=== PATIENT | male | born 1960 | race Caucasian/White ===

== ENCOUNTER 2020-08-17 07:21 | Outpatient (REF) | payer BC, SELFPAY ==
[2020-08-17 08:35] LABS: Alanine Aminotransferase 18 U/L (0-40); Albumin Level 4.5 g/dL (3.5-5.0); Alkaline Phosphatase 32 U/L (39-117); Anion Gap 14 (12-20); Aspartate Amino Transferase 20 U/L (5-37); Bilirubin Total 0.4 mg/dL (0.0-1.0); Blood Urea Nitrogen 16 mg/dL (9-16); Calcium 8.9 mg/dL (8.4-10.2); Carbon Dioxide 27 mmol/L (22-29); Chloride 103 mmol/L (96-108); Cholesterol 136 mg/dL; Estimated Glomerular Filt Rate > 60; Glucose Fasting 133 mg/dL (60-99); HDL Cholesterol 80 mg/dL; LDL Cholesterol Calculated 35 mg/dl; Potassium 4.6 mmol/l (3.3-5.1); Sodium 139 mmol/L (135-145); Total Protein 7.2 g/dL (6.5-8.0); Triglycerides 108 mg/dL
[2020-08-17 09:00] LABS: Creatinine Urine 96.17 mg/dL; Microalbum/Creatinine Ratio Ur 22.8 ug/mg cr
== END 2020-08-17 07:22 | disposition home or self-care (01) ==
LOC: HO.LAB 07:21
PROVIDERS: Visit Provider Internal Medicine
DX: E78.2 Mixed hyperlipidemia (principal); E55.9 Vitamin D deficiency, unspecified; E11.9 Type 2 diabetes mellitus without complications
CPT/HCPCS: 80053; 80061; 82043; 82306

== ENCOUNTER 2021-06-22 07:14 | Outpatient (REF) | payer OTHER, SELFPAY ==
[2021-06-22 08:35] LABS: Alanine Aminotransferase 15 U/L (0-40); Albumin Level 4.4 g/dL (3.5-5.0); Alkaline Phosphatase 34 U/L (39-117); Anion Gap 12 (12-20); Aspartate Amino Transferase 19 U/L (5-37); Bilirubin Total 0.4 mg/dL (0.0-1.0); Blood Urea Nitrogen 10 mg/dL (9-16); Calcium 9.4 mg/dL (8.4-10.2); Carbon Dioxide 28 mmol/L (22-29); Chloride 106 mmol/L (96-108); Cholesterol 131 mg/dL; Estimated Glomerular Filt Rate > 60; Glucose Fasting 151 mg/dL (60-99); HDL Cholesterol 63 mg/dL; LDL Cholesterol Calculated 31 mg/dl; Potassium 4.6 mmol/L (3.3-5.1); Sodium 141 mmol/L (135-145); Total Protein 6.9 g/dL (6.5-8.0); Triglycerides 189 mg/dL
[2021-06-22 09:19] LABS: Creatinine Urine 126.23 mg/dL; Microalbum/Creatinine Ratio Ur 20.5 ug/mg cr
[2021-06-27 15:01] LABS: Vitamin D 25-OH, D2 <4 ng/mL; Vitamin D 25-OH, D3 36 ng/mL; Vitamin D 25-OH, Total 36 ng/mL (30-100)
== END 2021-06-22 07:15 | disposition home or self-care (01) ==
LOC: HO.LAB 07:14
PROVIDERS: PCP Internal Medicine; Visit Provider Internal Medicine
DX: E55.9 Vitamin D deficiency, unspecified (principal); E78.5 Hyperlipidemia, unspecified; E11.9 Type 2 diabetes mellitus without complications
CPT/HCPCS: 36415; 80053; 80061; 82043; 82306

== ENCOUNTER 2021-11-02 09:56 | Outpatient (REF) | payer OTHER, SELFPAY ==
[2021-11-02 11:25] LABS: Alanine Aminotransferase 10 U/L (0-40); Albumin Level 4.5 g/dL (3.5-5.0); Alkaline Phosphatase 37 U/L (39-117); Anion Gap 11 (12-20); Aspartate Amino Transferase 16 U/L (5-37); Bilirubin Total 0.6 mg/dL (0.0-1.0); Blood Urea Nitrogen 12 mg/dL (9-16); Calcium 9.8 mg/dL (8.4-10.2); Carbon Dioxide 30 mmol/L (22-29); Chloride 101 mmol/L (96-108); Cholesterol 139 mg/dL; Estimated Glomerular Filt Rate > 60; Glucose Fasting 146 mg/dL (60-99); HDL Cholesterol 62 mg/dL; LDL Cholesterol Calculated 62 mg/dl; Potassium 4.4 mmol/L (3.3-5.1); Sodium 138 mmol/L (135-145); Total Protein 7.1 g/dL (6.5-8.0); Triglycerides 75 mg/dL
[2021-11-02 11:35] LABS: Creatinine Urine 73.83 mg/dL; Microalbum/Creatinine Ratio Ur 9.4 ug/mg cr
[2021-11-07 13:17] LABS: Vitamin D 25-OH, D2 <4 ng/mL; Vitamin D 25-OH, D3 29 ng/mL; Vitamin D 25-OH, Total 29 ng/mL (30-100)
== END 2021-11-02 09:57 | disposition home or self-care (01) ==
LOC: HO.LAB 09:56
PROVIDERS: PCP Internal Medicine; Visit Provider Internal Medicine
DX: E11.9 Type 2 diabetes mellitus without complications (principal); E55.9 Vitamin D deficiency, unspecified; E78.5 Hyperlipidemia, unspecified
CPT/HCPCS: 36415; 80053; 80061; 82043; 82306

== ENCOUNTER 2022-03-15 07:09 | Outpatient (REF) | payer OTHER, SELFPAY ==
[2022-03-15 07:50] LABS: Alanine Aminotransferase 18 U/L (0-40); Albumin Level 4.5 g/dL (3.5-5.0); Alkaline Phosphatase 43 U/L (39-117); Anion Gap 12 (12-20); Aspartate Amino Transferase 24 U/L (5-37); Bilirubin Total 0.8 mg/dL (0.0-1.0); Blood Urea Nitrogen 13 mg/dL (9-16); Calcium 9.6 mg/dL (8.4-10.2); Carbon Dioxide 28 mmol/L (22-29); Chloride 106 mmol/L (96-108); Cholesterol 130 mg/dL; Estimated Glomerular Filt Rate > 60; Glucose Fasting 125 mg/dL (60-99); HDL Cholesterol 73 mg/dL; LDL Cholesterol Calculated 32 mg/dl; Potassium 4.4 mmol/L (3.3-5.1); Sodium 142 mmol/L (135-145); Total Protein 7.3 g/dL (6.5-8.0); Triglycerides 129 mg/dL
[2022-03-15 09:15] LABS: Creatinine Urine 66.64 mg/dL; Microalbumin Urine < 5.0 mg/L
[2022-03-20 12:26] LABS: Vitamin D 25-OH, D2 <4 ng/mL; Vitamin D 25-OH, D3 36 ng/mL; Vitamin D 25-OH, Total 36 ng/mL (30-100)
== END 2022-03-15 07:10 | disposition home or self-care (01) ==
LOC: HO.LAB 07:09
PROVIDERS: PCP Internal Medicine; Visit Provider Internal Medicine
DX: E55.9 Vitamin D deficiency, unspecified (principal); E11.9 Type 2 diabetes mellitus without complications; E78.5 Hyperlipidemia, unspecified
CPT/HCPCS: 36415; 80053; 80061; 82043; 82306

== ENCOUNTER 2022-07-19 09:32 | Outpatient (REF) | payer OTHER, SELFPAY ==
[2022-07-19 11:19] LABS: Alanine Aminotransferase 13 U/L (0-40); Albumin Level 4.7 g/dL (3.5-5.0); Alkaline Phosphatase 42 U/L (39-117); Anion Gap 19 (12-20); Aspartate Amino Transferase 17 U/L (5-37); Bilirubin Total 0.4 mg/dL (0.0-1.0); Blood Urea Nitrogen 17 mg/dL (9-16); Calcium 10.3 mg/dL (8.4-10.2); Carbon Dioxide 25 mmol/L (22-29); Chloride 99 mmol/L (96-108); Cholesterol 139 mg/dL; Estimated Glomerular Filt Rate > 60; Glucose Fasting 115 mg/dL (60-99); HDL Cholesterol 65 mg/dL; LDL Cholesterol Calculated 59 mg/dl; Potassium 4.6 mmol/L (3.3-5.1); Sodium 138 mmol/L (135-145); Total Protein 7.4 g/dL (6.5-8.0); Triglycerides 75 mg/dL
[2022-07-19 11:24] LABS: Vitamin D 25-OH Total 36.3 ng/mL (>30)
[2022-07-19 11:27] LABS: Creatinine Urine 85.32 mg/dL; Microalbum/Creatinine Ratio Ur 11.7 ug/mg cr
== END 2022-07-19 09:33 | disposition home or self-care (01) ==
LOC: HO.LAB 09:32
PROVIDERS: PCP Internal Medicine; Visit Provider Internal Medicine
DX: E55.9 Vitamin D deficiency, unspecified (principal); E78.2 Mixed hyperlipidemia; E11.9 Type 2 diabetes mellitus without complications
CPT/HCPCS: 36415; 80053; 80061; 82043; 82306

== ENCOUNTER 2023-01-03 09:24 | Outpatient (REF) | payer OTHER, SELFPAY ==
[2023-01-03 10:36] LABS: Alanine Aminotransferase 11 U/L (0-40); Albumin Level 4.3 g/dL (3.5-5.0); Alkaline Phosphatase 37 U/L (39-117); Anion Gap 14 (12-20); Aspartate Amino Transferase 14 U/L (5-37); Bilirubin Total 0.6 mg/dL (0.0-1.0); Blood Urea Nitrogen 13 mg/dL (9-16); Calcium 9.2 mg/dL (8.4-10.2); Carbon Dioxide 27 mmol/L (22-29); Chloride 104 mmol/L (96-108); Cholesterol 138 mg/dL; Estimated Glomerular Filt Rate > 60; Glucose Fasting 126 mg/dL (60-99); HDL Cholesterol 68 mg/dL; LDL Cholesterol Calculated 58 mg/dl; Potassium 4.3 mmol/L (3.3-5.1); Sodium 141 mmol/L (135-145); Total Protein 6.6 g/dL (6.5-8.0); Triglycerides 62 mg/dL
[2023-01-03 10:51] LABS: Vitamin D 25-OH Total 36.2 ng/mL (>30)
[2023-01-03 11:45] LABS: Creatinine Urine 110.67 mg/dL; Microalbum/Creatinine Ratio Ur 10.8 ug/mg cr
== END 2023-01-03 09:25 | disposition home or self-care (01) ==
LOC: HO.LAB 09:24
PROVIDERS: PCP Internal Medicine; Visit Provider Internal Medicine
DX: E11.9 Type 2 diabetes mellitus without complications (principal); E55.9 Vitamin D deficiency, unspecified; E78.5 Hyperlipidemia, unspecified
CPT/HCPCS: 36415; 80053; 80061; 82043; 82306

== ENCOUNTER 2023-05-09 09:42 | Outpatient (REF) | payer OTHER, SELFPAY ==
[2023-05-09 11:18] LABS: Alanine Aminotransferase 12 U/L (0-40); Albumin Level 4.6 g/dL (3.5-5.0); Alkaline Phosphatase 40 U/L (39-117); Anion Gap 14 (12-20); Aspartate Amino Transferase 16 U/L (5-37); Bilirubin Total 0.5 mg/dL (0.0-1.0); Blood Urea Nitrogen 16 mg/dL (9-16); Calcium 10.4 mg/dL (8.4-10.2); Carbon Dioxide 27 mmol/L (22-29); Chloride 102 mmol/L (96-108); Cholesterol 129 mg/dL; Estimated Glomerular Filt Rate > 60; Glucose Fasting 110 mg/dL (60-99); HDL Cholesterol 68 mg/dL; LDL Cholesterol Calculated 44 mg/dl; Magnesium 1.6 mg/dL (1.6-2.6); Potassium 4.1 mmol/L (3.3-5.1); Sodium 139 mmol/L (135-145); Total Protein 7.5 g/dL (6.5-8.0); Triglycerides 87 mg/dL
[2023-05-09 11:33] LABS: Vitamin D 25-OH Total 41.6 ng/mL (>30)
[2023-05-09 11:45] LABS: Creatinine Urine 81.06 mg/dL; Microalbum/Creatinine Ratio Ur 14.8 ug/mg cr
== END 2023-05-09 09:43 | disposition home or self-care (01) ==
LOC: HO.LAB 09:42
PROVIDERS: PCP Internal Medicine; Visit Provider Internal Medicine
DX: E55.9 Vitamin D deficiency, unspecified (principal); E11.9 Type 2 diabetes mellitus without complications; R25.2 Cramp and spasm; E78.5 Hyperlipidemia, unspecified
CPT/HCPCS: 36415; 80053; 80061; 82043; 82306; 83735

== ENCOUNTER 2023-05-12 15:23 | Outpatient (AMB) | payer OTHER, SELFPAY ==
--- NOTE | 2023-05-12 15:25 | A.OFFPC_ITS ---
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 Required: No Accompanied by: Self / Same As Patient Allergies No Known Allergies Allergy (Verified 05/12/23 15:39) Medication List - Last Reconciled 05/12/23 by Niesha Isabel MD atorvastatin 10 mg PO DAILY blood sugar diagnostic Use 1 test strip once a day blood sugar diagnostic (OneTouch Ultra Test strips) Use 1 test strip once a day blood sugar diagnostic (FreeStyle Test strips) Use 1 test strip once a day blood-glucose meter (FreeStyle Lite Meter kit) As directed cholecalciferol (vitamin D3) 50 mcg PO DAILY fenofibrate 54 mg PO DAILY lancets (OneTouch Delica Lancets) Use 1 lancet once a day lancets (FreeStyle Lancets) Use 1 lancet once a day metformin 850 mg PO BID Tobacco use date assessed: 01/08/23 Dental Screening Dental Screen Date: 05/12/23 Did you have a dental visit in the last 12 months?: Yes Did you have a dental problem in the last 6 months where you did not have access to dental care?: No Was dental information given to patient?: Patient has dentist HPI HPI Comments History of Present Illness Details This is a 63-year-old male with diabetes mellitus type 2, mixed hyperlipidemia and low vitamin-D that comes today for follow-up on his conditions. Denies any chest pain shortness of breath. A1c within goal. Cholesterol stable and LDL within goal. Blood pressure elevated today and will be recheck in 3 weeks by nurse navigator. Advised low-salt diet. [facility] Medical History (Updated 05/12/23 @ 16:27 by Niesha Isabel MD) Diabetes mellitus Hypovitaminosis D Mixed hyperlipidemia Right inguinal hernia Surgical History History of inguinal hernia repair History of tonsillectomy History of umbilical hernia repair Family History Father Lung cancer Mother Esophageal cancer Brother Throat cancer Social History Housing: Apartment Alcohol intake: current Alcohol intake frequency: a few times a week Alcohol type: beer Patient Tobacco Use Status: Former Tobacco user Tobacco use type: Cigarette Years Smoked: 10 years e-Cigarette/Vaping Use: Never Used Second Hand Smoke Exposure: No service: No Current occupational status: employed Current occupational exposures/hazards: No Cognitive needs: No Hearing needs: No Vision needs: No Questionnaire Thrive Questionnaire Date Thrive assessed: 01/08/23 MICHAEL-7 AMB Questionnaire MICHAEL-7 Date MICHAEL - 7 assessed: 01/08/23 Source: Developed by Drs. Vivek Esteban, Kaykay Iglesias, Charles Rodriguez and colleagues, with an educational fei from [employer]. Review of Systems Const All systems reviewed & are unremarkable except as noted in HPI and below Eyes Reports no additional complaints, Denies change in vision and Denies other visual disturbances Card Denies chest pain at rest, Denies chest pain with activity, Denies edema, Denies irregular heart rhythm, Denies claudication, Denies dyspnea, Denies dyspnea on exertion, Denies orthopnea, Denies paroxysmal nocturnal dyspnea and Denies slow heart rate Resp Denies cough, Denies dyspnea and Denies dyspnea on exertion GI Denies abdominal pain, Denies change in bowel habits, Denies excessive flatus, Denies nausea and Denies vomiting Denies urinary hesitancy, Denies urinary incontinence and Denies urinary urgency Musc Denies abnormal gait, Denies atrophy, Denies deformity and Denies limited range of motion Skin/Breast Denies bleeding lesions, Denies changing lesions and Denies rash Neuro Denies abnormal gait Physical exam (Primary Care) Vital Signs: Last Vital Signs BP 160/90 H 05/12/23 15:29 BMI result Body Mass Index 26.0 Tobacco/Smoking Status: Tobacco use Status Tobacco use date assessed 01/08/23 05/12/23 15:28 Patient Tobacco Use Status Former Tobacco user 05/12/23 15:28 Tobacco use type Cigarette 05/12/23 15:28 e-Cigarette/Vaping Use Never Used 05/12/23 15:28 Thrive Assessment: Date of Thrive Assessment Date Thrive assessed 01/08/23 05/12/23 15:28 Eyes General: appearance normal, both eyes and all related structures Eyelids: Yes eyelids normal Conjunctivae: conjunctivae normal Neck Neck: Yes normal visual inspection and Yes supple Resp Effort & Inspection: normal respiratory effort Auscultation: clear to auscultation bilaterally Cardio Jugular venous distension: no JVD Rate: regular rate Rhythm: regular rhythm Heart sounds: S1 normal heart sound present and S2 normal heart sound present Extrem General: Yes full ROM Results AMB Hemoglobin A1c AMB Hemoglobin A1c 5.9 % Last Edit by MALCOLM Almaraz on 05/12/23 15:4 0 Results Reviewed Results Reviewed: Laboratory Last Values Hgb A1c (Clinic) 5.9 % (4.0-6.0) 05/12/23 15:25 Assessment and Plan Assessment & Plan (1) Diabetes mellitus: Code(s): E11.9 - Type 2 diabetes mellitus without complications Qualifiers: Diabetes mellitus type: type 2 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 A1c goal is equal or less than 7%. (2) Mixed hyperlipidemia: Code(s): E78.2 - Mixed hyperlipidemia Plan: Continue statins and fibrates. LDL goal is less than 70. (3) Hypovitaminosis D: Code(s): E55.9 - Vitamin D deficiency, unspecified Plan: Continue vitamin-D supplements. (4) Elevated blood pressure reading without diagnosis of hypertension: Code(s): R03.0 - Elevated blood-pressure reading, without diagnosis of hypertension Plan: Recheck blood pressure with nurse navigator in 3 weeks. Blood pressure goal is equal or less than 130/80. Avoid salt. Orders: Orders AMB Hemoglobin A1c Today E11.9 - Type 2 diabetes mellitus without complications Coding Level of Care Code Est Pt Level 4 (96243) Diagnoses Diabetes mellitus E11.9 Diabetes mellitus type: type 2 Diabetes mellitus termite control service representative insulin use: without termite control service representative use Diabetes mellitus complication status: without complication Mixed hyperlipidemia E78.2 Hypovitaminosis D E55.9 Elevated blood pressure reading without diagnosis of hypertension R03.0 Time Spent (min) 23
[2023-05-12 15:29] VITALS: BP 160/90; BMI 26.0
[2023-05-12 16:26] VITALS: BP 160/90
== END 2023-05-12 15:46 | disposition home or self-care (01) ==
PROVIDERS: PCP Internal Medicine; Visit Provider Internal Medicine
DX: E11.9 Type 2 diabetes mellitus without complications (principal); E78.2 Mixed hyperlipidemia; E55.9 Vitamin D deficiency, unspecified; R03.0 Elevated blood-pressure reading, without diagnosis of hypertension
CPT/HCPCS: 83036; 99214

== ENCOUNTER 2023-09-03 15:30 | Outpatient (AMB) | payer OTHER, SELFPAY ==
[2023-09-03 15:31] VITALS: BP 136/80; PULSE 86; O2SAT 99; BMI 26.1
--- NOTE | 2023-09-03 15:31 | A.OFFPC_ITS ---
Vital Signs 09/03/23 15:31 Height 5 ft 6 in Weight 162 lb BMI 26.1 BP 136/80 Blood Pressure Location Lt brachial Position Sitting Pulse 86 Pulse Source Pulse Oximeter Pulse Oximetry (%) 99 Oxygen Delivery Method Room Air Intake Visit Reasons: itching rash on both legs Intake Note: pt states rash/pain/itchiness on both legs [id number] with no relief. 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 Tumbler Machine Operator Language: Serbian Allergies No Known Allergies Allergy (Verified 09/03/23 16:12) Medication List - Last Reconciled 09/03/23 by DIONNE Cota atorvastatin 10 mg PO DAILY blood sugar diagnostic Use 1 test strip once a day blood sugar diagnostic (OneTouch Ultra Test strips) Use 1 test strip once a day blood sugar diagnostic (FreeStyle Test strips) Use 1 test strip once a day blood-glucose meter (FreeStyle Lite Meter kit) As directed cholecalciferol (vitamin D3) 50 mcg PO DAILY fenofibrate 54 mg PO DAILY lancets (OneTouch Delica Lancets) Use 1 lancet once a day lancets (FreeStyle Lancets) Use 1 lancet once a day metformin 850 mg PO BID Tobacco use date assessed: 09/03/23 Dental Screening Dental Screen Date: 09/03/23 Did you have a dental visit in the last 12 months?: Yes Did you have a dental problem in the last 6 months where you did not have access to dental care?: No Was dental information given to patient?: Patient has dentist HPI itching rash on both legs HPI Details Patient is a 63-year-old male who presents today with rash on her both legs for the past couple years. Patient of Dr. Gann. Medical history significant for diabetes, hyperlipidemia among others. Patient reports itchy, painful dry rash on his both legs for the past 1 month now with no improvement. Reports was seen in urgent care couple months ago and was prescribed cream with no much improvement. Reports taking Benadryl tablets with no improvement. Denies changes in shampoo, body wash, detergent, new medications. No other symptoms. Has an upcoming insurance follow up rep appointment next month. Patient is a Serbian-speaking and Aruna was helping with interpretation. [facility] Medical History Right inguinal hernia Hypovitaminosis D Mixed hyperlipidemia Diabetes mellitus Surgical History History of inguinal hernia repair History of umbilical hernia repair History of tonsillectomy Family History Father Lung cancer Mother Esophageal cancer Brother Throat cancer Social History Housing: Apartment Alcohol intake: current Alcohol intake frequency: a few times a week Alcohol type: beer Patient Tobacco Use Status: Former Tobacco user Tobacco use type: Cigarette Years Smoked: 10 years e-Cigarette/Vaping Use: Never Used Second Hand Smoke Exposure: No service: No Current occupational status: employed Current occupational exposures/hazards: No Cognitive needs: No Hearing needs: No Vision needs: No Questionnaire Thrive Questionnaire Date Thrive assessed: 01/08/23 AUDIT C Alcohol Use Questionnaire (AUDIT-C) 1. How often do you have a drink containing alcohol?: 4 or more times a week 2. How many drinks containing alcohol do you have on a typical day when you are drinking?: 1 or 2 3. How often do you have six or more drinks on one occasion?: Never Total Score: 4 Score Reviewed/Action Taken: Yes MICHAEL-7 AMB Questionnaire MICHAEL-7 Date MICHAEL - 7 assessed: 01/08/23 Source: Developed by Drs. Vivek Esteban, Kaykay Iglesias, Charles Rodriguez and colleagues, with an educational fei from [employer]. Review of Systems Const Denies body aches, Denies chills, Denies fever(s) and Denies headache(s) ENT Denies dizziness, Denies otalgia, Denies headache(s), Denies nasal discharge, Denies sinus pain and Denies sore throat Card Denies chest pain, Denies edema, Denies lightheadedness and Denies dyspnea Resp Denies cough, Denies dyspnea and Denies wheezing GI Denies abdominal pain Musc Denies myalgias Skin/Breast Reports rash Neuro Denies dizziness and Denies headache(s) Aller/Immun Denies wheezing Physical exam (Primary Care) Vital Signs: Last Vital Signs Pulse 86 09/03/23 15:31 BP 136/80 09/03/23 15:31 Pulse Ox 99 09/03/23 15:31 Oxygen Delivery Method Room Air 09/03/23 15:31 BMI result Body Mass Index 26.1 Tobacco/Smoking Status: Tobacco use Status Tobacco use date assessed 09/03/23 09/03/23 15:32 Patient Tobacco Use Status Former Tobacco user 09/03/23 15:32 Tobacco use type Cigarette 09/03/23 15:32 e-Cigarette/Vaping Use Never Used 09/03/23 15:32 Thrive Assessment: Date of Thrive Assessment Date Thrive assessed 01/08/23 09/03/23 15:32 Const General: cooperative and no acute distress Orientation/consciousness: patient oriented x3 HENMT Head: Yes normocephalic and Yes atraumatic Throat: Yes posterior oropharynx normal Eyes General: appearance normal, both eyes and all related structures Neck Neck: Yes normal visual inspection and Yes full ROM Resp Effort & Inspection: normal respiratory effort and able to speak in complete sentences Auscultation: clear to auscultation bilaterally, no crackles, no rales, no rhonchi and no wheezes Cardio Rate: regular rate Rhythm: regular rhythm Heart sounds: S1 normal heart sound present and S2 normal heart sound present GI Auscultation: normal bowel sounds Skin Other: Bilateral lower extremity distal posterior aspect with moderate amount of slightly erythematous dry areas noted, patient reports pruritus, no signs of infection noted Neuro General: patient oriented x3 Gait exam (Neuro): Normal gait present Extrem General: Yes full ROM and No edema Assessment and Plan Assessment & Plan (1) Pruritic rash: Code(s): L28.2 - Other prurigo Plan: Bilateral lower extremity distal posterior aspect with moderate amount of slightly erythematous dry areas noted, patient reports pruritus, no signs of infection noted ? Eczema Will treat with triamcinolone cream daily for 2 weeks - do not use this cream on face Also encouraged to use Vaseline daily to bilateral lower extremity Dermatology referral for an evaluation due to rash for the past couple years per patient Patient agreed with the plan Orders: Referrals Dermatology Referral L28.2 - Other prurigo Medications: New triamcinolone acetonide 0.1% 1 appl topical DAILY 14 days 80 grams 0RF L28.2 - Other prurigo Coding Level of Care Code Est Pt Level 3 (51264) Diagnoses Pruritic rash L28.2
== END 2023-09-03 16:29 | disposition home or self-care (01) ==
LOC: HO.HMGH 15:30
PROVIDERS: PCP Internal Medicine; Visit Provider Nurse Practitioner Family
DX: L28.2 Other prurigo (principal)
CPT/HCPCS: 99213

== ENCOUNTER 2024-01-13 15:44 | Outpatient (AMB) | payer OTHER, SELFPAY ==
--- NOTE | 2024-01-13 15:48 | A.OFFPC_ITS ---
Vital Signs 01/13/24 15:49 Height 5 ft 6 in Weight 165 lb BMI 26.6 BP 130/62 Blood Pressure Location Lt brachial Position Sitting Intake Visit Reasons: Annual exam Intake Note: Patient here for a an annual physical exam Pathologist Required: No Accompanied by: Self / Same As Patient Allergies No Known Allergies Allergy (Verified 01/13/24 16:14) Medication List - Last Reconciled 01/13/24 by Niesha Isabel MD atorvastatin 10 mg PO DAILY blood sugar diagnostic Use 1 test strip once a day blood sugar diagnostic (OneTouch Ultra Test strips) Use 1 test strip once a day blood sugar diagnostic (FreeStyle Test strips) Use 1 test strip once a day blood-glucose meter (FreeStyle Lite Meter kit) As directed cholecalciferol (vitamin D3) 50 mcg PO DAILY fenofibrate 54 mg PO DAILY lancets (FreeStyle Lancets) Use 1 lancet once a day lancets (OneTouch Delica Lancets) Use 1 lancet once a day metformin 850 mg PO BID triamcinolone acetonide 0.1% 1 appl topical DAILY 14 days Tobacco use date assessed: 01/13/24 Dental Screening Dental Screen Date: 01/13/24 Did you have a dental visit in the last 12 months?: No Did you have a dental problem in the last 6 months where you did not have access to dental care?: No Was dental information given to patient?: Patient has dentist HPI HPI Comments History of Present Illness Details This is a 63-year-old male with diabetes mellitus type 2 that comes for his physical exam. A1c elevated and I will increase metformin. Last colonoscopy was over 10 years ago and will be refer through open access. Was referred last year but was not able to make it happen. Diabetic eye exam was less than a year ago and was normal. No chest pain or shortness of breath. No acute complaints. [facility] Medical History (Updated 01/13/24 @ 16:26 by Niesha Isabel MD) Right inguinal hernia Hypovitaminosis D Mixed hyperlipidemia Diabetes mellitus Surgical History History of inguinal hernia repair History of umbilical hernia repair History of tonsillectomy Family History Father Lung cancer Mother Esophageal cancer Brother Throat cancer Social History Housing: Apartment Alcohol intake: current Alcohol intake frequency: a few times a week Alcohol type: beer Patient Tobacco Use Status: Former Tobacco user Tobacco use type: Cigarette Years Smoked: 10 years e-Cigarette/Vaping Use: Never Used Second Hand Smoke Exposure: No service: No Current occupational status: employed Current occupational exposures/hazards: No Cognitive needs: No Hearing needs: No Vision needs: No Questionnaire PHQ-9 Over the last 2 weeks, how often have you been bothered by any of the following problems? 1. Little interest or pleasure in doing things: not at all 2. Feeling down, depressed, or hopeless: not at all 3. Trouble falling or staying asleep, or sleeping too much: not at all 4. Feeling tired or having little energy: not at all 5. Poor appetite or overeating: not at all 6. Feeling bad about yourself - or that you are a failure or have let yourself or your family down: not at all 7. Trouble concentrating on things, such as reading the newspaper or watching television: not at all 8. Moving or speaking so slowly that other people could have noticed. Or the opposite - being so fidgety or restless that you have been moving around a lot more than usual: not at all 9. Thoughts that you would be better off or of hurting yourself in some way: not at all Total score: 0 Depression Screening Interpretation: Negative Depression Screening Done: Yes 42564 - PHQ-9 Billing: Yes Source: Developed by Drs. Vivek Esteban, Kaykay Iglesias, Charles Rodriguez and colleagues, with an educational fei from [employer]. Thrive Questionnaire Date Thrive assessed: 01/13/24 I am a: Patient What is your living situation today?: I have a steady place to live Within the past 12 months, did the food you bought not last and you didn't have the money to get more?: Never true Within the past 12 months, did you worry whether your food would run out before you got money to buy more?: Never true Do you have trouble paying for medicines?: No Do you have trouble getting transportation to medical appointments?: No Do you have trouble paying your heating and electricity bill?: No Do you have trouble taking care of your child, family member or friend?: No Do you have trouble with day-to-day activities such as bathing, preparing meals, shopping, managing finances, etc.?: No Are you currently unemployed and looking for a job?: No Are you interested in more education?: No Please select the resources that you would like help with: None Currently or been in a relationship where the following occur: no concerns reported THRIVE Score: 0 AUDIT C Alcohol Use Questionnaire (AUDIT-C) 1. How often do you have a drink containing alcohol?: 2-4 times a month 2. How many drinks containing alcohol do you have on a typical day when you are drinking?: 1 or 2 3. How often do you have six or more drinks on one occasion?: Never Total Score: 2 MICHAEL-7 AMB Questionnaire MICHAEL-7 Date MICHAEL - 7 assessed: 01/13/24 Feeling nervous, anxious, or on edge: 0 = Not at all Not being able to stop or control worryin = Not at all Worrying too much about different things: 0 = Not at all Trouble relaxin = Not at all Being so restless that it is hard to sit still: 0 = Not at all Becoming easily annoyed or irritable: 0 = Not at all Feeling afraid as if something awful might happen: 0 = Not at all Total MICHAEL-7 score (0-4 normal; 5-9 mild; 10-14 moderate; 15-21 severe): 0 Source: Developed by Drs. Vivek Esteban, Kaykay Iglesias, Charles Rodriguez and colleagues, with an educational fei from [employer]. MICHAEL-7 Assessment Billing MICHAEL-7 Assessment Tool: MICHAEL-7 Assessment 65743 Review of Systems Const All systems reviewed & are unremarkable except as noted in HPI and below Card Denies chest pain at rest, Denies chest pain with activity, Denies edema, Denies irregular heart rhythm, Denies claudication, Denies dyspnea, Denies dyspnea on exertion, Denies orthopnea, Denies paroxysmal nocturnal dyspnea and Denies slow heart rate Resp Denies cough, Denies dyspnea and Denies dyspnea on exertion GI Denies abdominal pain, Denies change in bowel habits, Denies excessive flatus, Denies nausea and Denies vomiting Physical exam (Primary Care) Vital Signs: Last Vital Signs BP 130/62 01/13/24 15:49 BMI result Body Mass Index 26.6 Tobacco/Smoking Status: Tobacco use Status Tobacco use date assessed 01/13/24 01/13/24 15:53 Patient Tobacco Use Status Former Tobacco user 01/13/24 15:53 Tobacco use type Cigarette 01/13/24 15:53 e-Cigarette/Vaping Use Never Used 01/13/24 15:53 PHQ-9: PHQ-9 Score PHQ-9: Total score 0 01/13/24 16:21 Depression Screening Interpretation: Negative Thrive Assessment: Date of Thrive Assessment Date Thrive assessed 01/13/24 01/13/24 15:59 Currently or been in a relationship where the following occur: no concerns reported Const Orientation/consciousness: patient oriented x3 HENMT Head: Yes normal to inspection, Yes normocephalic and Yes atraumatic Ears: external ears normal Eyes General: appearance normal, both eyes and all related structures Eyelids: Yes eyelids normal Conjunctivae: conjunctivae normal Neck Neck: Yes normal visual inspection and Yes supple Resp Effort & Inspection: normal respiratory effort Auscultation: clear to auscultation bilaterally Cardio Jugular venous distension: no JVD Rate: regular rate Rhythm: regular rhythm Heart sounds: S1 normal heart sound present and S2 normal heart sound present GI Inspection: Yes normal to inspection Palpation (GI): Soft to palpation and nontender Auscultation: normal bowel sounds Skin General skin exam: no rashes or lesions noted Neuro General: patient oriented x3 and no focal motor deficits Extrem General: Yes full ROM Psych Appearance: grossly normal Results AMB Hemoglobin A1c AMB Hemoglobin A1c 7.3 % Last Edit by MALCOLM Almaraz on 01/13/24 16:0 3 Results Reviewed Results Reviewed: Laboratory Last Values Hgb A1c (Clinic) 7.3 % (4.0-6.0) H 01/13/24 16:00 Assessment and Plan Assessment & Plan (1) Physical exam: Code(s): Z00.00 - Encounter for general adult medical examination without abnormal findings Plan: Repeat in a year. 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 A1c goal is equal or less than 7%. Orders: Orders AMB Hemoglobin A1c Today E11.9 - Type 2 diabetes mellitus without complications Comprehensive [place]. Panel Fast 4 Months E11.9 - Type 2 diabetes mellitus without complications Lipid Panel 4 Months E11.9 - Type 2 diabetes mellitus without complications, E78.5 - Hyperlipidemia, unspecified Vitamin D 25-OH Total 4 Months E55.9 - Vitamin D deficiency, unspecified US abdomen complete Today R10.11 - Right upper quadrant pain [place] upper GI series Today K21.9 - Gastro-esophageal reflux disease without esophagitis Microalbumin, Random (w Creat) 4 Months E11.9 - Type 2 diabetes mellitus without complications Referrals Open Access Screening Colonoscopy Referral Z12.11 - Encounter for screening for malignant neoplasm of colon Medications: New omeprazole 20 mg PO DAILY 90 days PRN 90 caps 1RF heartburn K21.9 - Gastro- esophageal reflux disease without esophagitis metformin 1,000 mg PO BID 90 days 180 tabs 1RF E11.9 - Type 2 diabetes mellitus without complications Refilled blood-glucose meter (FreeStyle Lite Meter kit) As directed 1 ea 0RF E11.9 - Type 2 diabetes mellitus without complications Discontinued metformin Discontinued Reason: Patient Completed Course 850 mg PO BID 60 tabs 2RF Coding Level of Care Code Est Pt Prev Care 40-64y(82086) Diagnoses Physical exam Z00.00 Type 2 diabetes mellitus without complication, without long-term current use of insulin E11.9 Diabetes mellitus type: type 2 Diabetes mellitus [facility] insulin use: without [employer] use Diabetes mellitus complication status: without complication Additional Codes MICHAEL-7 Assessment Billing - MICHAEL-7 Assessment Tool: MICHAEL-7 Assessment 16768 ([id number]) Time Spent (min) 33
[2024-01-13 15:49] VITALS: BP 130/62; BMI 26.6
== END 2024-01-13 16:27 | disposition home or self-care (01) ==
PROVIDERS: PCP Internal Medicine; Visit Provider Internal Medicine
DX: E11.9 Type 2 diabetes mellitus without complications (principal)
CPT/HCPCS: 83036; 99396

== ENCOUNTER 2024-01-21 08:03 | Outpatient (REF) | payer OTHER, SELFPAY ==
--- NOTE | ~2024-01-21 | FL_ITS ---
EXAMINATION: XR FLUOROSCOPY UPPER GI WITH AIR CLINICAL INFORMATION: Reflux. Abdominal pain COMPARISON: None TECHNIQUE: Fluoroscopic air contrast upper GI examination was performed utilizing standard techniques with thin and thick barium and effervescent granules. Numerous spot images were obtained. FINDINGS: Dual and single contrast images of the esophagus demonstrate normal caliber, contour, and mucosal pattern. No evidence of stricture, mass, or ulcerations identified. Esophageal peristalsis is mildly disorganized. No evidence of hiatus hernia identified. Gastroesophageal reflux is seen up to the thoracic inlet. Dual contrast and single contrast images of the stomach demonstrated a normal contour. There are a few tiny foci of contrast pooling in the fundus of the stomach that may represent small mucosal ulcers. No masses are present. Contrast freely passed into the gastric antrum and duodenal bulb without delay. Single and air-contrast images of the duodenal bulb demonstrate no abnormality. The duodenal sweep has a normal appearance, course, and mucosal fold appearance. The imaged proximal jejunum has a normal fold pattern and caliber. There is rapid transit of the barium column. Contrast is observed up to the transverse colon in less than 10 minutes. FLUOROSCOPY TIME: 3 minutes 7 second Number of Spot Images: 11 Number of Cine: 10 DOSE AREA PRODUCT: 2142 uGy-m2 (microgray-meter squared) FL/FL upper GI w air IMPRESSION: 1. Mildly disorganized esophageal peristalsis 2. There are few tiny foci of contrast pooling in the fundus the stomach that may represent small superficial aphthous ulcers. Recommend correlation with EGD. 3. Rapid transit of the barium column. Contrast is observed in the transverse colon in less than 10 minutes. . This procedure was performed by Zelalem Tay PA-C, and supervised by Dr. Wasserman
== END 2024-01-21 08:04 | disposition home or self-care (01) ==
LOC: HO.XRAY 08:03
PROVIDERS: PCP Internal Medicine; Visit Provider Internal Medicine
DX: K21.9 Gastro-esophageal reflux disease without esophagitis (principal)
CPT/HCPCS: 74246

== ENCOUNTER → 2024-01-21 08:06 | Outpatient (BNV) | payer OTHER, SELFPAY | PROVIDERS: PCP Internal Medicine; Visit Provider Physician Assistant Surgical | DX: K21.9 Gastro-esophageal reflux disease without esophagitis (principal); R10.9 Unspecified abdominal pain | CPT/HCPCS: 74246 ==

== ENCOUNTER 2024-02-18 08:29 | Outpatient (REF) | payer OTHER, SELFPAY ==
--- NOTE | ~2024-02-18 | US_ITS ---
EXAMINATION: US ABDOMEN COMPLETE CLINICAL INFORMATION: Right upper quadrant pain. COMPARISON: X-ray abdomen 09/17/2016. TECHNIQUE: Real-time imaging of the abdominal viscera. Increased renal echogenicity can be seen with medical renal disease. Limited visualization due to bowel gas. FINDINGS: PANCREAS: Limited visualization of pancreatic tail and head. Imaged portion of pancreatic body is unremarkable. ABDOMINAL AORTA: Limited visualization. INFERIOR VENA CAVA: Visualized portions are normal. LIVER: Increased hepatic parenchymal heterogeneity and echogenicity could be associated with hepatocellular disease/hepatic steatosis and substantially limits visualization. Correlation with liver function tests and clinical exam recommended to determine further management. The liver contour is normal. 0.4 cm echogenic focus in the left hepatic lobe is characteristic of a coarse calcification. GALLBLADDER: No gallstones. No gallbladder wall thickening. COMMON BILE DUCT: Normal in caliber measuring 0.4 cm in diameter. RIGHT KIDNEY: No hydronephrosis. No renal calculi. Limited visualization. The kidney measures 12.4 cm in maximum dimension. LEFT KIDNEY: No hydronephrosis. No renal calculi. Limited visualization. The kidney measures 11.8 cm in maximum dimension. SPLEEN: Normal. The spleen measures 8.8 cm in maximum dimension. FREE FLUID: None. US/US abdomen complete IMPRESSION: 1. Increased hepatic parenchymal heterogeneity and echogenicity could be associated with hepatocellular disease/hepatic steatosis and substantially limits visualization. Correlation with liver function tests and clinical exam recommended to determine further management. 2. Increased renal echogenicity can be seen with medical renal disease. Limited visualization due to bowel gas.
== END 2024-02-18 08:30 | disposition home or self-care (01) ==
LOC: HO.US 08:29
PROVIDERS: PCP Internal Medicine; Visit Provider Internal Medicine
DX: R10.11 Right upper quadrant pain (principal)
CPT/HCPCS: 76700

== ENCOUNTER 2024-04-01 08:04 | Outpatient (REF) | payer OTHER, SELFPAY ==
[2024-04-01 10:24] LABS: Alanine Aminotransferase 13 U/L (0-40); Albumin Level 4.5 g/dL (3.5-5.0); Alkaline Phosphatase 43 U/L (39-117); Aspartate Amino Transferase 17 U/L (5-37); Bilirubin Direct 0.1 mg/dL (0.0-0.5); Bilirubin Total 0.5 mg/dL (0.0-1.0); Lipase 33 U/L (8-78); Total Protein 7.3 g/dL (6.5-8.0)
== END 2024-04-01 08:05 | disposition home or self-care (01) ==
LOC: HO.LAB 08:04
PROVIDERS: PCP Internal Medicine; Visit Provider Nurse Practitioner Family
DX: R93.3 Abnormal findings on diagnostic imaging of other parts of digestive tract (principal); R10.9 Unspecified abdominal pain; K21.9 Gastro-esophageal reflux disease without esophagitis; R14.0 Abdominal distension (gaseous); R10.13 Epigastric pain; R13.19 Other dysphagia
CPT/HCPCS: 36415; 80076; 83690

== ENCOUNTER 2024-04-01 08:04 | Outpatient (AMB) | payer OTHER, SELFPAY ==
--- NOTE | 2024-04-01 08:16 | MHC.OFFVIS ---
Vital Signs 04/01/24 08:17 Height 5 ft 6 in Weight 162 lb BMI 26.1 BP 152/69 H Blood Pressure Location Lt brachial Position Sitting Pulse 70 Intake Visit Reasons: abnormal findings on imaging Intake Note: Patient new patient abnormal finding on imaging. Patient cc: abdominal bloating, acid reflex with burning sensation, he feel like the food digestive is too slow, denies any other GI issues. Portfolio Strategist Required: Yes Portfolio Strategist Name: [facility] Interpeter Accompanied by: Self / Same As Patient Allergies No Known Allergies Allergy (Verified 04/01/24 08:33) HPI HPI abnormal findings on imaging: Details: 63-year-old male with past medical history of diabetes, hyperlipidemia is here today for initial consultation. Patient was sent to us by his PCP. Patient is due to go for colonoscopy and recently in the past year patient has been having epigastric pain and right sided abdominal pain when he is sleeping. Patient states that he has been having abdominal bloating after eating certain food. Trying to avoid greasy and spicy food. Patient was given script for omeprazole and uses on as needed basis. Patient reports occasional dysphagia. Patient feels like he has to drink water with almost anything that he eats. Upper GI series done that showed disorganized peristalses and some pooling of the contrast in the fundus of the stomach suggestive inflammation. Patient denies nausea or vomiting. Patient reports that he is moving his bowels, however not every day. He feels like he empties his bowels well. Does not feel like he is constipated. language interpreter used [place] COUNT INCLUDES [facility] Medical History Right inguinal hernia Hypovitaminosis D Mixed hyperlipidemia Diabetes mellitus Surgical History History of inguinal hernia repair History of umbilical hernia repair History of tonsillectomy Family History Father Lung cancer Mother Esophageal cancer Brother Throat cancer Social History Housing: Apartment Alcohol intake: current Alcohol intake frequency: a few times a week Alcohol type: beer Patient Tobacco Use Status: Former Tobacco user Tobacco use type: Cigarette Years Smoked: 10 years e-Cigarette/Vaping Use: Never Used Second Hand Smoke Exposure: No service: No Current occupational status: employed Current occupational exposures/hazards: No Cognitive needs: No Hearing needs: No Vision needs: No Review of Systems Const Denies weight gain and Denies weight loss ENT Reports no additional complaints, Reports dysphagia and Denies odynophagia Card Reports no additional complaints Resp Reports no additional complaints GI Reports abdominal pain, Denies belching, Denies melena, Reports bloating, Denies change in bowel habits, Reports dysphagia, Denies excessive flatus, Reports dyspepsia, Reports heartburn, Denies diarrhea, Denies loose stools, Denies nausea, Denies odynophagia and Denies vomiting Reports no additional complaints Musc Reports no additional complaints Neuro Reports no additional complaints Psych Reports no additional complaints Endo Reports no additional complaints Physical Exam Vital Signs: Last Vital Signs Pulse 70 04/01/24 08:17 BP 152/69 H 04/01/24 08:17 BMI result Body Mass Index 26.1 Const General: healthy appearing, no acute distress and well developed Nutritional Appearance: well nourished Orientation/consciousness: patient oriented x3 Resp Effort & Inspection: normal respiratory effort, able to speak in complete sentences, no tracheal deviation and symmetric chest movement Auscultation: clear to auscultation bilaterally Cardio Rate: regular rate GI Inspection: Yes normal to inspection and No distended Palpation (GI): Soft to palpation, not firm, nontender and No hepatosplenomegaly present Auscultation: normal bowel sounds General: Yes no CVA tenderness Back/Spine/Pelvis Back: no CVA tenderness Skin General skin exam: elasticity normal, turgor normal and dry skin Neuro General: patient oriented x3 Psych Appearance: grossly normal Mental Status: mental status grossly normal Results Reviewed Results Reviewed: UPPER GI SERIES 01/21/24 MPRESSION: 1. Mildly disorganized esophageal peristalsis 2. There are few tiny foci of contrast pooling in the fundus the stomach that may represent small superficial aphthous ulcers. Recommend correlation with EGD. 3. Rapid transit of the barium column. Contrast is observed in the transverse colon in less than 10 minutes. . ABDOMINAL ULTRASOUND 02/18/2024 FINDINGS: PANCREAS: Limited visualization of pancreatic tail and head. Imaged portion of pancreatic body is unremarkable. ABDOMINAL AORTA: Limited visualization. INFERIOR VENA CAVA: Visualized portions are normal. LIVER: Increased hepatic parenchymal heterogeneity and echogenicity could be associated with hepatocellular disease/hepatic steatosis and substantially limits visualization. Correlation with liver function tests and clinical exam recommended to determine further management. The liver contour is normal. 0.4 cm echogenic focus in the left hepatic lobe is characteristic of a coarse calcification. GALLBLADDER: No gallstones. No gallbladder wall thickening. COMMON BILE DUCT: Normal in caliber measuring 0.4 cm in diameter. RIGHT KIDNEY: No hydronephrosis. No renal calculi. Limited visualization. The kidney measures 12.4 cm in maximum dimension. LEFT KIDNEY: No hydronephrosis. No renal calculi. Limited visualization. The kidney measures 11.8 cm in maximum dimension. SPLEEN: Normal. The spleen measures 8.8 cm in maximum dimension. FREE FLUID: None. US/US abdomen complete IMPRESSION: 1. Increased hepatic parenchymal heterogeneity and echogenicity could be associated with hepatocellular disease/hepatic steatosis and substantially limits visualization. Correlation with liver function tests and clinical exam recommended to determine further management. 2. Increased renal echogenicity can be seen with medical renal disease. Limited visualization due to bowel gas. Assessment & Plan Assessment & Plan (1) Abnormal upper gastrointestinal barium series: Code(s): R93.3 - Abnormal findings on diagnostic imaging of other parts of digestive tract Category: Medical (2) GERD (gastroesophageal reflux disease): Code(s): K21.9 - Gastro-esophageal reflux disease without esophagitis Category: Medical Qualifiers: Esophagitis presence: esophagitis presence not specified Qualified Code(s): K21.9 - Gastro-esophageal reflux disease without esophagitis (3) Postprandial abdominal bloating: Code(s): R14.0 - Abdominal distension (gaseous) (4) Postprandial epigastric pain: Code(s): R10.13 - Epigastric pain (5) Dysphagia: Code(s): R13.10 - Dysphagia, unspecified Qualifiers: Dysphagia type: esophageal phase Qualified Code(s): R13.19 - Other dysphagia Plan Lipase and liver profile. Patient will start taking omeprazole daily. Avoid dietary triggers and late night snacking. Patient has postprandial abdominal bloating with different food. Low FODMAP diet recommended. List of food recommended as well as list of food to avoid given to patient. Message sent to surgical schedulers to book upper endoscopy and colonoscopy. Patient is due for colo. I will see him in 2 months to discuss the prep. He will call our office if he will have any GI concerning symptoms. Patient reports his right sided abdominal pain during the night not related to food. Abdominal ultrasound shows hepatic steatosis. Low fat diet. Patient is agreeable to plan of care and verbalizes understanding of instructions. He was given the opportunity to ask questions and all questions answered thank you for allowing me to participate in his care Orders: Orders Lipase Today R10.9 - Unspecified abdominal pain Liver Panel Today R74.01 - Elevation of levels of liver transaminase levels Coding Level of Care Code New Pt Level 4 (60902) Diagnoses Abnormal upper gastrointestinal barium series R93.3 Gastroesophageal reflux disease, unspecified whether esophagitis present K21.9 Esophagitis presence: esophagitis presence not specified Postprandial abdominal bloating R14.0 Postprandial epigastric pain R10.13 Esophageal dysphagia R13.19 Dysphagia type: esophageal phase Time Spent (min) 45 Comment 30 minutes spent with patient and additional 15 minutes spent reviewing his records
[2024-04-01 08:17] VITALS: BP 152/69; PULSE 70; BMI 26.1
== END 2024-04-01 09:14 | disposition home or self-care (01) ==
PROVIDERS: PCP Internal Medicine; Visit Provider Nurse Practitioner Family
DX: R93.3 Abnormal findings on diagnostic imaging of other parts of digestive tract (principal); K21.9 Gastro-esophageal reflux disease without esophagitis; R14.0 Abdominal distension (gaseous); R10.13 Epigastric pain; R13.19 Other dysphagia
CPT/HCPCS: 99204

== ENCOUNTER 2024-05-21 07:41 | Outpatient (REF) | payer OTHER, SELFPAY ==
[2024-05-21 09:40] LABS: Alanine Aminotransferase 15 U/L (0-40); Albumin Level 4.3 g/dL (3.5-5.0); Alkaline Phosphatase 42 U/L (39-117); Anion Gap 13 (12-20); Aspartate Amino Transferase 16 U/L (5-37); Bilirubin Total 0.3 mg/dL (0.0-1.0); Blood Urea Nitrogen 12 mg/dL (9-16); Calcium 9.6 mg/dL (8.4-10.2); Carbon Dioxide 29 mmol/L (22-29); Chloride 106 mmol/L (96-108); Cholesterol 136 mg/dL (<200); Estimated Glomerular Filt Rate > 60; Glucose Fasting 152 mg/dL (60-99); HDL Cholesterol 53 mg/dL (>40); LDL Cholesterol Calculated 46 mg/dL (<100); Potassium 4.3 mmol/L (3.3-5.1); Sodium 144 mmol/L (135-145); Total Protein 7.1 g/dL (6.5-8.0); Triglycerides 185 mg/dL (<150)
[2024-05-21 09:41] LABS: Microalbum/Creatinine Ratio Ur 53.2 ug/mg cr (<30)
[2024-05-21 09:56] LABS: Vitamin D 25-OH Total 36.9 ng/mL (>30)
== END 2024-05-21 07:42 | disposition home or self-care (01) ==
LOC: HO.LAB 07:41
PROVIDERS: PCP Internal Medicine; Visit Provider Internal Medicine
DX: E55.9 Vitamin D deficiency, unspecified (principal); E78.5 Hyperlipidemia, unspecified; E11.9 Type 2 diabetes mellitus without complications
CPT/HCPCS: 36415; 80053; 80061; 82043; 82306; 82570

== ENCOUNTER 2024-05-24 15:28 | Outpatient (AMB) | payer OTHER, SELFPAY ==
[2024-05-24 15:42] VITALS: BP 150/70; BMI 26.8
--- NOTE | 2024-05-24 15:42 | MHC.PC.OV ---
Vital Signs 05/24/24 15:42 05/24/24 19:35 Height 5 ft 6 in Weight 166 lb BMI 26.8 BP 150/70 H 150/70 H Blood Pressure Location Lt brachial Lt brachial Position Sitting Sitting Intake Visit Reasons: dm Intake Note: Patient here for a follow up DM Medical Device Sales Representative Required: No Accompanied by: Self / Same As Patient Allergies No Known Allergies Allergy (Verified 05/24/24 15:53) Medication List - Last Reconciled 05/24/24 by Niesha Isabel MD atorvastatin 10 mg PO DAILY blood sugar diagnostic Use 1 test strip once a day blood sugar diagnostic (OneTouch Ultra Test strips) Use 1 test strip once a day blood sugar diagnostic (FreeStyle Test strips) Use 1 test strip once a day blood-glucose meter (FreeStyle Lite Meter kit) As directed cholecalciferol (vitamin D3) 50 mcg PO DAILY fenofibrate 54 mg PO DAILY lancets (FreeStyle Lancets) Use 1 lancet once a day lancets (OneTouch Delica Lancets) Use 1 lancet once a day metformin 1,000 mg PO BID 90 days omeprazole 20 mg PO DAILY PRN 90 days triamcinolone acetonide 0.1% 1 appl topical DAILY 14 days Tobacco use date assessed: 01/13/24 Fall risk assessment: No Falls in past year Last assessed Fall Risk: 05/24/24 Dental Screening Dental Screen Date: 01/13/24 HPI HPI Comments History of Present Illness Details This is a 64-year-old male with diabetes mellitus type 2, dyslipidemia and low vitamin-D that comes today for follow-up on his conditions. Blood pressure has been elevated and I will start him on lisinopril. A1c has improved and he declines having another medication. Labs will be repeated for next office visit. On vitamin-D supplements for his low vitamin-D. LDL within goal. No acute complaints. Has abnormal upper GI and will see Gastroenterology soon for endoscopy. [facility] Medical History (Updated 05/24/24 @ 19:37 by Niesha Isabel MD) Right inguinal hernia Hypovitaminosis D Mixed hyperlipidemia Diabetes mellitus Surgical History History of inguinal hernia repair History of umbilical hernia repair History of tonsillectomy Family History Father Lung cancer Mother Esophageal cancer Brother Throat cancer Social History Housing: Apartment Alcohol intake: current Alcohol intake frequency: a few times a week Alcohol type: beer Patient Tobacco Use Status: Former Tobacco user Tobacco use type: Cigarette Years Smoked: 10 years e-Cigarette/Vaping Use: Never Used Second Hand Smoke Exposure: No service: No Current occupational status: employed Current occupational exposures/hazards: No Cognitive needs: No Hearing needs: No Vision needs: No Questionnaire Thrive Questionnaire Date Thrive assessed: 01/13/24 MICHAEL-7 AMB Questionnaire MICHAEL-7 Date MICHAEL - 7 assessed: 01/13/24 Source: Developed by Drs. Vivek Esteban, Kaykay Iglesias, Charles Rodriguez and colleagues, with an educational fei from [employer]. Review of Systems Const All systems reviewed & are unremarkable except as noted in HPI and below Card Denies chest pain at rest, Denies chest pain with activity, Denies edema, Denies irregular heart rhythm, Denies claudication, Denies dyspnea, Denies dyspnea on exertion, Denies orthopnea, Denies paroxysmal nocturnal dyspnea and Denies slow heart rate Resp Denies cough, Denies dyspnea and Denies dyspnea on exertion GI Denies abdominal pain, Denies change in bowel habits, Denies excessive flatus, Denies nausea and Denies vomiting Denies urinary hesitancy, Denies urinary incontinence and Denies urinary urgency Physical exam (Primary Care) Vital Signs: Last Vital Signs BP 150/70 H 05/24/24 15:42 BMI result Body Mass Index 26.8 Tobacco/Smoking Status: Tobacco use Status Tobacco use date assessed 01/13/24 05/24/24 15:45 Patient Tobacco Use Status Former Tobacco user 05/24/24 15:45 Tobacco use type Cigarette 05/24/24 15:45 e-Cigarette/Vaping Use Never Used 05/24/24 15:45 Thrive Assessment: Date of Thrive Assessment Date Thrive assessed 01/13/24 05/24/24 15:45 Resp Effort & Inspection: normal respiratory effort Auscultation: clear to auscultation bilaterally Cardio Jugular venous distension: no JVD Rate: regular rate Rhythm: regular rhythm Heart sounds: S1 normal heart sound present and S2 normal heart sound present Extrem General: Yes full ROM Results AMB Hemoglobin A1c AMB Hemoglobin A1c 7.2 % Last Edit by MALCOLM Almaraz on 05/24/24 15:49 Results Reviewed Results Reviewed: Laboratory Last Values Hgb A1c (Clinic) 7.2 % (4.0-6.0) H 05/24/24 15:45 Assessment and Plan Assessment & Plan (1) Diabetes mellitus: Code(s): E11.9 - Type 2 diabetes mellitus without complications Qualifiers: Diabetes mellitus type: type 2 Diabetes mellitus residential insulin use: without residential use Diabetes mellitus complication status: without complication Qualified Code(s): E11.9 - Type 2 diabetes mellitus without complications Plan: Continue metformin. A1c goal is equal or less than 7%. (2) Mixed hyperlipidemia: Code(s): E78.2 - Mixed hyperlipidemia Plan: Continue statins and fibrates. LDL goal is less than 70. (3) Hypovitaminosis D: Code(s): E55.9 - Vitamin D deficiency, unspecified Plan: Continue vitamin-D supplements. (4) Essential hypertension: Code(s): I10 - Essential (primary) hypertension Plan: Start lisinopril. Blood pressure goal is equal or less than 130/80 Orders: Orders Lipid Panel 4 Months E78.5 - Hyperlipidemia, unspecified Comprehensive [place]. Panel Fast 4 Months E11.9 - Type 2 diabetes mellitus without complications AMB Hemoglobin A1c Today E11.9 - Type 2 diabetes mellitus without complications Microalbumin, Random (w Creat) 4 Months E11.9 - Type 2 diabetes mellitus without complications Referrals Dermatology Referral L28.2 - Other prurigo Medications: New lisinopril 10 mg PO DAILY 90 tabs 1RF 90 days Coding Level of Care Code Est Pt Level 4 (71130) Complex EM visit Add On G2211 Diagnoses Type 2 diabetes mellitus without complication, without long-term current use of insulin E11.9 Diabetes mellitus type: type 2 Diabetes mellitus tank terminal gauger insulin use: without residential use Diabetes mellitus complication status: without complication Mixed hyperlipidemia E78.2 Hypovitaminosis D E55.9 Essential hypertension I10 Time Spent (min) 23
[2024-05-24 19:35] VITALS: BP 150/70
== END 2024-05-24 16:03 | disposition home or self-care (01) ==
PROVIDERS: PCP Internal Medicine; Visit Provider Internal Medicine
DX: E11.9 Type 2 diabetes mellitus without complications (principal); E78.2 Mixed hyperlipidemia; E55.9 Vitamin D deficiency, unspecified; I10 Essential (primary) hypertension
CPT/HCPCS: 83036; 99214

== ENCOUNTER 2024-06-22 14:35 | Outpatient (AMB) | payer OTHER, SELFPAY ==
--- NOTE | 2024-06-22 14:39 | MHC.PC.OV ---
Vital Signs 06/22/24 14:40 Height 5 ft 6 in Weight 164 lb BMI 26.5 BP 124/72 Blood Pressure Location Lt brachial Position Sitting Pulse 85 Pulse Source Pulse Oximeter Pulse Oximetry (%) 96 Oxygen Delivery Method Room Air Intake Visit Reasons: Rash in neck and face Intake Note: Patient is here to follow up on Rash all over body since 06/18/24, with pressure in head and neck. Patient Relations Representative Required: Yes Patient Relations Representative Language: Lead Driver Name: Dayana ([id number]) Information Interpreted: non-clinical & clinical Art Librarian: Not Required per policy Accompanied by: Self / Same As Patient Allergies No Known Allergies Allergy (Verified 06/22/24 15:34) Medication List - Last Reconciled 06/22/24 by Leonel Boston MD atorvastatin 10 mg PO DAILY blood sugar diagnostic Use 1 test strip once a day blood sugar diagnostic (OneTouch Ultra Test strips) Use 1 test strip once a day blood sugar diagnostic (FreeStyle Test strips) Use 1 test strip once a day blood-glucose meter (FreeStyle Lite Meter kit) As directed cholecalciferol (vitamin D3) 50 mcg PO DAILY fenofibrate 54 mg PO DAILY hydroxyzine HCl 50 mg PO TID lancets (FreeStyle Lancets) Use 1 lancet once a day lancets (OneTouch Delica Lancets) Use 1 lancet once a day lisinopril 10 mg PO DAILY 90 days metformin 1,000 mg PO BID 90 days omeprazole 20 mg PO DAILY PRN 90 days prednisone PO PER PKG DIR triamcinolone acetonide 0.1% 1 appl topical DAILY 14 days Tobacco use date assessed: 06/22/24 Fall risk assessment: No Falls in past year Last assessed Fall Risk: 06/22/24 Dental Screening Dental Screen Date: 01/13/24 HPI Rash in neck and face HPI Details 64-year-old male presents to the office for a sick visit. I am covering for his primary care provider. A diamond setter apprentice via the iPad was utilized. Patient is complaining of a transient rash for the past week. He brings in pictures to demonstrate. Pictures show a rash on the abdomen, wheals and predominantly on the elbows and back. He went to a medical facility and was given hydroxyzine and prednisone. Patient is still continuing to take the medications. He received a COVID and flu vaccine on Thursday last. [facility] Medical History Right inguinal hernia Hypovitaminosis D Mixed hyperlipidemia Diabetes mellitus Surgical History History of inguinal hernia repair History of umbilical hernia repair History of tonsillectomy Family History Father Lung cancer Mother Esophageal cancer Brother Throat cancer Social History Housing: Apartment Alcohol intake: current Alcohol intake frequency: a few times a week Alcohol type: beer Patient Tobacco Use Status: Former Tobacco user Tobacco use type: Cigarette Years Smoked: 10 years e-Cigarette/Vaping Use: Never Used Second Hand Smoke Exposure: No service: No Current occupational status: employed Current occupational exposures/hazards: No Cognitive needs: No Hearing needs: No Vision needs: No Questionnaire Thrive Questionnaire Date Thrive assessed: 01/13/24 Are you currently unemployed and looking for a job?: No MICHAEL-7 AMB Questionnaire MICHAEL-7 Date MICHAEL - 7 assessed: 01/13/24 Source: Developed by Drs. Vivek Esteban, Kaykay Iglesias, Charles Rodriguez and colleagues, with an educational fei from [employer] Physical exam (Primary Care) Vital Signs: Last Vital Signs Pulse 85 06/22/24 14:40 BP 124/72 06/22/24 14:40 Pulse Ox 96 06/22/24 14:40 Oxygen Delivery Method Room Air 06/22/24 14:40 BMI result Body Mass Index 26.5 Tobacco/Smoking Status: Tobacco use Status Tobacco use date assessed 06/22/24 06/22/24 14:43 Patient Tobacco Use Status Former Tobacco user 06/22/24 14:43 Tobacco use type Cigarette 06/22/24 14:43 e-Cigarette/Vaping Use Never Used 06/22/24 14:43 Thrive Assessment: Date of Thrive Assessment Date Thrive assessed 01/13/24 06/22/24 14:43 Skin Other: Most of the symptoms documented in pictures that patient showed have diminished. Trace erythematous area over the right forearm. Coding Level of Care Code Est Pt Level 3 (34348) Complex EM visit Add On G2211 Diagnoses Urticaria L50.9 Assessment & Plan Assessment & Plan (1) Urticaria: Code(s): L50.9 - Urticaria, unspecified Plan: Complete the medication provided by the physician at the other medical facility. In addition cetirizine and Pepcid have been prescribed to block the H1 and H2 receptors
[2024-06-22 14:40] VITALS: BP 124/72; PULSE 85; O2SAT 96; BMI 26.5
== END 2024-06-22 15:30 | disposition home or self-care (01) ==
PROVIDERS: PCP Internal Medicine; Visit Provider Internal Medicine
DX: L50.9 Urticaria, unspecified (principal)

== ENCOUNTER → 2024-06-22 14:35 | Outpatient (BNVA) | payer OTHER, SELFPAY | PROVIDERS: PCP Internal Medicine; Visit Provider Internal Medicine ==

== ENCOUNTER 2024-07-06 13:39 | Outpatient (AMB) | payer OTHER, SELFPAY ==
[2024-07-06 13:44] VITALS: BP 136/70; PULSE 76; O2SAT 98; BMI 26.4
--- NOTE | 2024-07-06 13:44 | A.OFFVIS_ITS ---
Vital Signs 07/06/24 13:44 Height 5 ft 6 in Weight 163 lb 9.328 oz BMI 26.4 BP 136/70 Blood Pressure Location Lt brachial Position Sitting Pulse 76 Pulse Source Pulse Oximeter Pulse Oximetry (%) 98 Oxygen Delivery Method Room Air Intake Visit Reasons: follow up abnormal results Intake Note: Relevant Flags or Indicators ? Requires Java Software? Varying information noted. Pt is able to verify that he does typically prefer having an conservation policy analyst during most visits. Herbert presents in office today for a scheduled 3 mos FUV. CC; Since last visit; labs ordered ? done (per PCP + Liver, Lipase). Rx ordered ? no. Diagnostics/images ordered ? none. Relevant GI Sx as reported per pt? ?Reflux ?Early satiety ?Bloating ?Abdominal distention ?Hx of any recent surgeries? None recent -- Upcoming next month for double w/ Dr. Olvera. Java Software Required: Yes Java Software Services: Java Software Present Java Software Name: [id number] Lalitha Information Interpreted: non-clinical & clinical Accompanied by: Self / Same As Patient Allergies No Known Allergies Allergy (Verified 07/06/24 13:45) HPI HPI follow up abnormal results: Details: LAST VISIT Abnormal upper gastrointestinal barium series GERD (gastroesophageal reflux disease) Postprandial abdominal bloating Postprandial epigastric pain Dysphagia Plan Lipase and liver profile. Patient will start taking omeprazole daily. Avoid dietary triggers and late night snacking. Patient has postprandial abdominal bloating with different food. Low FODMAP diet recommended. List of food recommended as well as list of food to avoid given to patient. Message sent to surgical schedulers to book upper endoscopy and colonoscopy. Patient is due for colo. I will see him in 2 months to discuss the prep. He will call our office if he will have any GI concerning symptoms. Patient reports his right sided abdominal pain during the night not related to food. Abdominal ultrasound shows hepatic steatosis. Low fat diet. Patient is agreeable to plan of care and verbalizes understanding of instructions. He was given the opportunity to ask questions and all questions answered thank you for allowing me to participate in his care Orders Orders Lipase Today R10.9 Liver Panel Today R74.01 TODAY'S VISIT: Patient is here today for follow-up and to discuss lab results. Patient continues to have epigastric pain postprandially depending on what he eats. Occasional feeling full and dysphagia. Patient denies any odynophagia or dyspepsia. Patient denies any nausea or vomiting. Postprandial abdominal bloating. Reports that he usually moves his bowels well without any issues. Denies any diarrhea or constipation. Denies any abdominal pain or discomfort. Denies melena, hematochezia, unintentional weight loss or ribbon like stools. Patient is due to go for colonoscopy. Patient has colonoscopy and upper endoscopy scheduled for August 16. Patient denies any issues with anesthesia. Not on any anticoagulation medication. Patient is on lisinopril for blood pressure. Not taking insulin. Denies any cardiac or respiratory symptoms. No history of sleep apnea. [facility] Medical History Right inguinal hernia Hypovitaminosis D Mixed hyperlipidemia Diabetes mellitus Surgical History History of inguinal hernia repair History of umbilical hernia repair History of tonsillectomy Family History Father Lung cancer Mother Esophageal cancer Brother Throat cancer Social History Housing: Apartment Alcohol intake: current Alcohol intake frequency: a few times a week Alcohol type: beer Patient Tobacco Use Status: Former Tobacco user Tobacco use type: Cigarette Years Smoked: 10 years e-Cigarette/Vaping Use: Never Used Second Hand Smoke Exposure: No service: No Current occupational status: employed Current occupational exposures/hazards: No Cognitive needs: No Hearing needs: No Vision needs: No Review of Systems Const Denies weight gain and Denies weight loss ENT Reports no additional complaints, Denies dysphagia and Denies odynophagia Card Reports no additional complaints Resp Reports no additional complaints GI Denies abdominal pain, Denies belching, Denies melena, Denies bloating, Denies change in bowel habits, Denies dysphagia, Denies excessive flatus, Denies dyspepsia, Denies heartburn, Denies diarrhea, Denies loose stools, Denies nausea, Denies odynophagia and Denies vomiting Reports no additional complaints Musc Reports no additional complaints Neuro Reports no additional complaints Psych Reports no additional complaints Endo Reports no additional complaints Physical Exam Vital Signs: Last Vital Signs Pulse 76 07/06/24 13:44 BP 136/70 07/06/24 13:44 Pulse Ox 98 07/06/24 13:44 Oxygen Delivery Method Room Air 07/06/24 13:44 BMI result Body Mass Index 26.4 Const General: healthy appearing, no acute distress and well developed Nutritional Appearance: well nourished Orientation/consciousness: patient oriented x3 Resp Effort & Inspection: normal respiratory effort, able to speak in complete sentences, no tracheal deviation and symmetric chest movement Auscultation: clear to auscultation bilaterally Cardio Rate: regular rate GI Inspection: Yes normal to inspection and No distended Palpation (GI): Soft to palpation, not firm, nontender and No hepatosplenomegaly present Auscultation: normal bowel sounds General: Yes no CVA tenderness Back/Spine/Pelvis Back: no CVA tenderness Skin General skin exam: elasticity normal, turgor normal and dry skin Neuro General: patient oriented x3 Psych Appearance: grossly normal Mental Status: mental status grossly normal Results Reviewed Results Reviewed: Laboratory Tests 05/21/24 05/24/24 08:26 15:45 Hgb A1c (Clinic) 7.2 H Total Bilirubin 0.3 AST 16 ALT 15 Alkaline Phosphatase 42 Triglycerides 185 H Assessment & Plan Assessment & Plan (1) Abnormal upper gastrointestinal barium series: Code(s): R93.3 - Abnormal findings on diagnostic imaging of other parts of digestive tract Category: Medical (2) GERD (gastroesophageal reflux disease): Code(s): K21.9 - Gastro-esophageal reflux disease without esophagitis Category: Medical Qualifiers: Esophagitis presence: esophagitis presence not specified Qualified Code(s): K21.9 - Gastro-esophageal reflux disease without esophagitis (3) Postprandial abdominal bloating: Code(s): R14.0 - Abdominal distension (gaseous) (4) Postprandial epigastric pain: Code(s): R10.13 - Epigastric pain (5) Dysphagia: Code(s): R13.10 - Dysphagia, unspecified Qualifiers: Dysphagia type: pharyngoesophageal phase Qualified Code(s): R13.14 - Dysphagia, pharyngoesophageal phase Plan What to expect before during and after procedure discussed with patient. Stressed the importance of good bowel prep and clear liquid diet day before procedure. Patient can continue his PPI and H2 brent. Treatment might be janiya nged depending on biopsy results. Patient was also instructed to avoid dietary triggers and late night snacking. Staying upright for minimum 3 hours after meals discussed with patient. Patient denies any issues with anesthesia in the past. No history of sleep apnea. Not on any anticoagulation medication. Denies any cardiac or respiratory symptoms. I will see patient after the procedure, sooner on as needed basis. He is agreeable to this plan and verbalizes understanding of instructions. He was given the opportunity to ask questions and all questions answered. Thank you for allowing me to participate in his care Medications: New bisacodyl (Dulcolax (bisacodyl)) take 4 tabs at noon the day before your colonoscopy 20 mg (4 x 5 mg) PO ONCE 4 tabs 0RF 1 day Z12.11 - Encounter for screening for malignant neoplasm of colon polyethylene glycol 3350 (Miralax) As directed by gastroenterology department at [facility] 238 grams PO ONCE 238 grams 0RF Z12.11 - Encounter for screening for malignant neoplasm of colon Changed From omeprazole 20 mg PO DAILY 90 days PRN 90 caps 1RF heartburn K21.9 - Gastro-esophageal reflux disease without esophagitis To omeprazole 20 mg PO DAILY 90 caps 1RF heartburn 90 days K21.9 - Gastro- esophageal reflux disease without esophagitis Coding Level of Care Code Est Pt Level 3 (32726) Diagnoses Abnormal upper gastrointestinal barium series R93.3 Gastroesophageal reflux disease, unspecified whether esophagitis present K21.9 Esophagitis presence: esophagitis presence not specified Postprandial abdominal bloating R14.0 Postprandial epigastric pain R10.13 Pharyngoesophageal dysphagia R13.14 Dysphagia type: pharyngoesophageal phase Time Spent (min) 30 Comment 20 minutes spent with patient and additional 10 minutes spent reviewing his records
== END 2024-07-06 14:30 | disposition home or self-care (01) ==
PROVIDERS: PCP Internal Medicine; Visit Provider Nurse Practitioner Family
DX: R93.3 Abnormal findings on diagnostic imaging of other parts of digestive tract (principal); K21.9 Gastro-esophageal reflux disease without esophagitis; R14.0 Abdominal distension (gaseous); R10.13 Epigastric pain; R13.14 Dysphagia, pharyngoesophageal phase
CPT/HCPCS: 99213

== ENCOUNTER → 2024-07-06 13:39 | Outpatient (BNVA) | payer OTHER, SELFPAY | PROVIDERS: PCP Internal Medicine; Visit Provider Nurse Practitioner Family ==

== ENCOUNTER 2024-08-16 10:16 | Day surgery (SDC) | payer OTHER, SELFPAY ==
[2024-08-12 14:10] VITALS: BMI 26.3
[2024-08-16 10:39] VITALS: BMI 25.2
[2024-08-16 10:57] VITALS: BP 144/65; PULSE 82; RESP 16; TEMP 36.7; O2SAT 99
--- NOTE | 2024-08-16 11:12 | P.HPSUR_ITS ---
Pre-Procedural Eval Section A - 24 Hr Update-Section A only Date of Service: 08/16/24 Section B - Complete if H&P > 30 days Chief Complaint: Abdominal distension,gerd,abnormal findings Details of Present Illness: dysphagia Relevant Family History (Specify if Yes): No Relevant Social History: None Present Medications: see Short Stay Collaborative assessment Medical History: Significant History History of Previous Operations: Relevant previous surgery/procedure and date(s) Allergies: Allergies Allergy/AdvReac Type Severity Reaction Status Date / Time No Known Allergies Allergy Verified 07/06/24 13:45 Right inguinal hernia Hypovitaminosis D Mixed hyperlipidemia Diabetes mellitus Surgical History (Reviewed 07/06/24 @ 13:44 by Ab Reynolds [facility]) History of inguinal hernia repair History of umbilical hernia repair History of tonsillectomy Review of Systems Sugical H&P ROS: Negative: Constitution, Cardiovascular, Respiratory, Neurological, Psychiatric, Hem-Onc, Allergic/Immunologic, Gastrointestinal, Genitourinary, Musculoskeletal, Integumentary, Endocrine and Eyes/Ears/Nose/Throat Exam Surgical H&P Exam: Normal: HEENT, Normal: Heart, Normal: Lungs, Normal: Extremities, Normal: Abdomen, Normal: Skin and Normal: Neurological Plan Diagnosis/Plan: Unchanged I have reviewed the history and physical and performed a pertinent physical examination on my patient. No changes have occurred unless specified. Time Spent With Patient Time: Total time managing care of this patient today ____ minutes.
[2024-08-16 12:58] LABS: Glucose, Whole Blood 124 mg/dL (60-115)
--- NOTE | 2024-08-16 13:11 | HO.OPN-COLON ---
Colonoscopy Operative Note Operative Note Date of Service: 08/16/24 Narrative: Operative Information Procedure Description: EGD, Colonoscopy Indication: epigastric pain and screening Anesthesia: MAC FLEXIBLE TRANSORAL UPPER GASTROINTESTINAL ENDOSCOPY AND COLONOSCOPY PROCEDURE NOTE UPPER ENDOSCOPY Consent: Indications for the procedure and potential complications of bleeding, perforation, reaction to medications and missed diagnosis were discussed with the patient and informed consent was obtained. Instrument: Olympus GIF H 190 J mid size upper endoscope Monitoring: Vital signs and clinical assessment, continuous EKG monitoring, Pulse oximetry, Carbon Dioxide monitoring and blood pressure monitoring were done throughout the procedure. Procedure: The patient was placed in the left lateral decubitis position and pre-procedure medications were administered and a bite block was placed. The endoscope was inserted into the mouth and advanced under direct vision to the third part of duodenum. A careful inspection was made as the upper endoscope was withdrawn including a retroflexed examination of the proximal stomach; Findings and interventions are described below. Findings: Larynx:normal Esophagus: GE junction at 38 cm, diaphragm hiatus at 38 cm, esophagitis with linear erosive streaks, LA grade C --balloon dilation to 18 mm at UES and LES--no tears seen Stomach: patchy erythema with 10 mm ulcer in distal body with eschar Biopsies were obtained. Grade 2 flap valve on retroflexed examination of the cardia. Duodenum: patchy erosive duodenitis Intervention: Biopsies as noted above, balloon dilation COLONOSCOPY Instrument: Olympus variable stiffness pediatric scope 190L Colonoscopy Monitoring: Vital signs and clinical assessment, continuous EKG monitoring, Pulse oximetry, Carbon Dioxide monitoring and blood pressure monitoring were done throughout the procedure. Colon withdrawal time was 16 minutes. Procedure: The patient was placed in the left lateral decubitis position and pre-procedure medications were administered. After a digital rectal examination of the ano-rectum, the video colonoscope was inserted into the rectum and advanced through the colon to the cecum/TI. The colonoscope was slowly withdrawn in a retrograde panoramic fashion and the colon mucosa was carefully examined including a retroflexed view of the rectum. Findings and interventions are described below. Procedure Difficulty:moderate Findings: Terminal Ileum-not intubated Cecum:normal Ascending Colon: midl diverticulosis, x 3 sessile polyps 7-9 mm removed with cold snare Transverse Colon -normal Descending Colon:normal Sigmoid Colon: mdoerate diverticulosis, x 4 sessile polyps 8-10 mm, x 3 removed with cold snare and x 1 with cold forceps Rectum: Retroflexion with small internal hemorrhoids, grade I Anorectum - normal Colon preparation: [place] Bowel Preparation Scale Right colon; 1-2 Transverse colon: 2 Left colon; 1-2 (0 = Unprepared colon segment with mucosa not seen due to solid stool that cannot be cleared. 1 = Portion of mucosa of the colon segment seen, but other areas of the colon segment not well seen due to staining, residual stool and/or opaque liquid. 2 = Minor amount of residual staining, small fragments of stool and/or opaque liquid, but mucosa of colon segment seen well. 3 = Entire mucosa of colon segment seen well with no residual staining, small fragments of stool or opaque liquid) Impression and Post Procedure Diagnosis: Endoscopy Findings: erosive duodenitis erosive esophagitis gastric ulcer Colonoscopy Findings: diverticulosis colon polyps internal hemorrhoids Plan: Await Pathology results Repeat Colonoscopy in 1 year or earlier if clinically indicated High fiber diet leaflet avoid straining at stool, epsom salts and sitz bath, anusol supps or cream if h pylori pos then treat, check compliance with PPI Above findings were reviewed with the patient and relevant handouts were provided if indicated.
[2024-08-16 13:40] VITALS: BP 121/61; PULSE 76; RESP 18; TEMP 36.6; O2SAT 97
[2024-08-16 13:55] VITALS: BP 144/66; PULSE 73; RESP 18; TEMP 36.9; O2SAT 97
--- NOTE | 2024-08-16 17:06 | HO.ANESPROP2 ---
HPI - Anesthesia Eval Consult details Narrative: 64 M for colonoscopy/EGD [facility] Active Problems Active Problems: All Active Problems (Updated 05/24/24 @ 19:37 by Niesha Isabel MD) Essential hypertension (Acute) Abnormal upper gastrointestinal barium series (Acute) GERD (gastroesophageal reflux disease) (Acute) Right upper quadrant abdominal pain (Acute) Pruritic rash (Acute) Elevated blood pressure reading without diagnosis of hypertension (Acute) Physical exam (Acute) Right hand pain (Acute) Muscle cramp (Acute) Allergic reaction (Acute) Leg numbness (Acute) Left shoulder pain (Acute) Right inguinal hernia (Acute) Hypovitaminosis D (Acute) Mixed hyperlipidemia (Acute) Diabetes mellitus (Acute) Past Medical History Medical History Right inguinal hernia Hypovitaminosis D Mixed hyperlipidemia Diabetes mellitus Family History Family History Father Lung cancer Mother Esophageal cancer Brother Throat cancer Family history of problems with anesthesia: No Surgical History Surgical History History of inguinal hernia repair History of umbilical hernia repair History of tonsillectomy History of Problems with Anesthesia: No Social History Social History Housing: Apartment Alcohol intake: current Alcohol intake frequency: a few times a week Alcohol type: beer Patient Tobacco Use Status: Former Tobacco user Tobacco use type: Cigarette Years Smoked: 10 years e-Cigarette/Vaping Use: Never Used Second Hand Smoke Exposure: No service: No Current occupational status: employed Current occupational exposures/hazards: No Cognitive needs: No Hearing needs: No Vision needs: No Meds Allergies Allergy/AdvReac Type Severity Reaction Status Date / Time No Known Allergies Allergy Verified 07/06/24 13:45 Home Medications ?Medication ?Instructions ?Recorded ?Confirmed ?Last Taken ?Type hydroxyzine HCl 50 mg tablet 50 mg PO TID 06/22/24 08/16/24 Unknown History Exam Height,Weight and Vital Signs: Height 5 ft 6 in Weight 156 lb Last Vital Signs Temp 98.5 F 08/16/24 13:55 Pulse 73 08/16/24 13:55 Resp 18 08/16/24 13:55 BP 144/66 H 08/16/24 13:55 Pulse Ox 97 08/16/24 13:55 O2 Del Method Room Air 08/16/24 13:55 Pertinent Lab Results Pertinent Lab Results: Laboratory Tests 08/16/24 12:54 POC Glucose 124 H Airway Mallampati Class: II TM Dist: >3cm Loose/Missing/Broken Teeth: Yes Assessment and Plan Assessment Anesthesia Assessment: Anesthesia Plan Discussed and Chart Reviewed Final Anesthetic Review Family History of Problems with Anesthesia: No History of Problems with Anesthesia: No NPO: Yes ASA Class: II Final Preanesthetic Review: No Changes in Pt Med Stat, Meds/Allgs Chart Reviewed, Consent Obtained/Reviewed and Anes Risks/Benef Reviewed Patient Risk: Low Procedure Risk: Low Anesthetic Plan Anesthetic Plan: MAC: Disposition: Standard PACU
== END 2024-08-16 14:24 | disposition home or self-care (01) ==
PROVIDERS: PCP Internal Medicine; Visit Provider Internal Medicine Gastroenterology
PROC: (CPT 43249; principal; 2024-08-16 11:30)
DX: K29.50 Unspecified chronic gastritis without bleeding (principal); B96.81 Helicobacter pylori [H. pylori] as the cause of diseases classified elsewhere; K22.10 Ulcer of esophagus without bleeding; K26.9 Duodenal ulcer, unspecified as acute or chronic, without hemorrhage or perforation; K25.9 Gastric ulcer, unspecified as acute or chronic, without hemorrhage or perforation; K21.9 Gastro-esophageal reflux disease without esophagitis; R13.14 Dysphagia, pharyngoesophageal phase; R93.3 Abnormal findings on diagnostic imaging of other parts of digestive tract; D12.2 Benign neoplasm of ascending colon; D12.5 Benign neoplasm of sigmoid colon; K57.30 Diverticulosis of large intestine without perforation or abscess without bleeding; K64.0 First degree hemorrhoids; E11.9 Type 2 diabetes mellitus without complications; I10 Essential (primary) hypertension; E78.2 Mixed hyperlipidemia; E55.9 Vitamin D deficiency, unspecified; Z87.891 Personal history of nicotine dependence; K29.60 Other gastritis without bleeding; Z79.84 Long term (current) use of oral hypoglycemic drugs; Z79.899 Other long term (current) drug therapy; Z79.02 Long term (current) use of antithrombotics/antiplatelets
CPT/HCPCS: 43249; 43239; 45385; 45380; 82947; 88305; 88313; 88342; C1726; J2003; J2704

== ENCOUNTER → 2024-08-16 10:16 | Outpatient (BNV) | payer OTHER, SELFPAY | PROVIDERS: PCP Internal Medicine; Visit Provider Internal Medicine Gastroenterology | DX: Z12.11 Encounter for screening for malignant neoplasm of colon (principal); D12.2 Benign neoplasm of ascending colon; D12.5 Benign neoplasm of sigmoid colon; K57.90 Diverticulosis of intestine, part unspecified, without perforation or abscess without bleeding; K64.0 First degree hemorrhoids; K20.90 Esophagitis, unspecified without bleeding; K29.80 Duodenitis without bleeding; K25.9 Gastric ulcer, unspecified as acute or chronic, without hemorrhage or perforation | CPT/HCPCS: 43239; 43249; 45380; 45385 ==

== ENCOUNTER 2024-08-29 11:55 | Outpatient (AMB) | payer OTHER, SELFPAY ==
[2024-08-29 11:59] VITALS: BP 142/70; PULSE 86; O2SAT 99; BMI 25.9
--- NOTE | 2024-08-29 11:59 | A.OFFVIS_ITS ---
Vital Signs 08/29/24 11:59 Height 5 ft 6 in Weight 160 lb 7.944 oz BMI 25.9 BP 142/70 H Blood Pressure Location Rt brachial Position Sitting Pulse 86 Pulse Source Pulse Oximeter Pulse Oximetry (%) 99 Oxygen Delivery Method Room Air Intake Visit Reasons: s/p egd/colon Intake Note: ESTABLISHED PATIENT Herbert presents in office today for a scheduled s/p FUV Meds reviewed? Y Allergies reviewed? Y No other recent surgeries Any significant concerns or new changes? No significant changes or concerns. Results only. Pharmacy verified? [facility] [place] Foreign Language Professor Required: Yes Foreign Language Professor Services: Foreign Language Professor Offered & Declined Foreign Language Professor Name: [id number] Tor Information Interpreted: non-clinical & clinical Accompanied by: Self / Same As Patient Allergies No Known Allergies Allergy (Verified 08/29/24 11:59) HPI HPI s/p egd/colon: Details: LAST VISIT Abnormal upper gastrointestinal barium series GERD (gastroesophageal reflux disease) Postprandial abdominal bloating Postprandial epigastric pain Dysphagia Plan What to expect before during and after procedure discussed with patient. Stressed the importance of good bowel prep and clear liquid diet day before procedure. Patient can continue his PPI and H2 brent. Treatment might be changed depending on biopsy results. Patient was also instructed to avoid dietary triggers and late night snacking. Staying upright for minimum 3 hours after meals discussed with patient. Patient denies any issues with anesthesia in the past. No history of sleep apnea. Not on any anticoagulation medication. Denies any cardiac or respiratory symptoms. I will see patient after the procedure, sooner on as needed basis. He is agreeable to this plan and verbalizes understanding of instructions. He was given the opportunity to ask questions and all questions answered. ? Thank you for allowing me to participate in his care Medications New bisacodyl (Dulcolax (bisacodyl)) take 4 tabs at noon the day before your colonoscopy 20 mg (4 x 5 mg) PO ONCE 4 tabs 0RF 1 day Z12.11 polyethylene glycol 3350 (Miralax) As directed by gastroenterology department at [facility] 238 grams PO ONCE 238 grams 0RF Z12.11 Changed Changed From omeprazole 20 mg PO DAILY 90 days PRN 90 caps 1RF heartburn K21.9 Changed To omeprazole 20 mg PO DAILY 90 caps 1RF heartburn 90 days K21.9 UPPER ENDOSCOPY AND COLONOSCOPY Findings: Larynx:normal Esophagus: GE junction at 38 cm, diaphragm hiatus at 38 cm, esophagitis with linear erosive streaks, LA grade C --balloon dilation to 18 mm at UES and LES--no tears seen Stomach: patchy erythema with 10 mm ulcer in distal body with eschar Biopsies were obtained. Grade 2 flap valve on retroflexed examination of the cardia. Duodenum: patchy erosive duodenitis Intervention: Biopsies as noted above, balloon dilation COLONOSCOPY Instrument: Olympus variable stiffness pediatric scope 190L Colonoscopy Monitoring: Vital signs and clinical assessment, continuous EKG monitoring, Pulse oximetry, Carbon Dioxide monitoring and blood pressure monitoring were done throughout the procedure. Colon withdrawal time was 16 minutes. Procedure: The patient was placed in the left lateral decubitis position and pre-procedure medications were administered. After a digital rectal examination of the ano-rectum, the video colonoscope was inserted into the rectum and advanced through the colon to the cecum/TI. The colonoscope was slowly withdrawn in a retrograde panoramic fashion and the colon mucosa was carefully examined including a retroflexed view of the rectum. Findings and interventions are described below. Procedure Difficulty:moderate Findings: Terminal Ileum-not intubated Cecum:normal Ascending Colon: midl diverticulosis, x 3 sessile polyps 7-9 mm removed with cold snare Transverse Colon -normal Descending Colon:normal Sigmoid Colon: mdoerate diverticulosis, x 4 sessile polyps 8-10 mm, x 3 removed with cold snare and x 1 with cold forceps Rectum: Retroflexion with small internal hemorrhoids, grade I Anorectum - normal Colon preparation: Theodore Bowel Preparation Scale Right colon; 1-2 Transverse colon: 2 Left colon; 1-2 (0 = Unprepared colon segment with mucosa not seen due to solid stool that cannot be cleared. 1 = Portion of mucosa of the colon segment seen, but other areas of the colon segment not well seen due to staining, residual stool and/or opaque liquid. 2 = Minor amount of residual staining, small fragments of stool and/or opaque liquid, but mucosa of colon segment seen well. 3 = Entire mucosa of colon segment seen well with no residual staining, small fragments of stool or opaque liquid) Impression and Post Procedure Diagnosis: Endoscopy Findings: erosive duodenitis erosive esophagitis gastric ulcer Colonoscopy Findings: diverticulosis colon polyps internal hemorrhoids Plan: Await Pathology results Repeat Colonoscopy in 1 year or earlier if clinically indicated High fiber diet leaflet avoid straining at stool, epsom salts and sitz bath, anusol supps or cream if h pylori pos then treat, check compliance with PPI PATHOLOGY RESULTS Addendum Addendum #1 Immunostain for H. pylori on A is Positive. Additional level with AB/PAS on A does not show any goblet cells. Controls stain appropriately. Electronically Signed By: Dayana Almanza 08/22/24 2537 Diagnosis A. Stomach, biopsy: Chronic gastritis with mild activity, rare goblet cells suspicious for intestinal metaplasia, and superficial bacteria suggestive of H.pylori; negative for dysplasia. B. Colon, ascending, polyps: Tubular adenomas (multiple pieces); negative for high-grade dysplasia and carcinoma. C. Colon, sigmoid, polyps: Tubular adenomas (multiple pieces); negative for high-grade dysplasia and carcinoma. Comment: (A): Immunostain for H. pylori pending, and additional level with AB/PAS stain pending; addendum to follow. TODAY'S VISIT Patient is here today for follow-up and to discuss upper endoscopy and c olonoscopy results. Patient denies any ill effects from the prep, anesthesia or procedure itself. Patient reports that he is doing well. Patient reports that he no longer experiences dysphagia or acid reflux. He is currently taking omeprazole 20 mg daily. Patient reports that he is moving his bowels well. Suboptimal prep, however patient does admit that he did not finish all of his prep as he was unable to drink all of it. Will need to get Dulcolax for 5-7 days before colonoscopy. Patient will repeat colonoscopy in 1 year. Two tubular adenoma found without high grade dysplasia or carcinoma. Upper endoscopy showed erosive duodenitis, esophagitis and gastritis. Biopsy came back positive for H pylori patient will start the treatment today. Patient denies melena, hematochezia, unintentional weight loss or ribbon like stools. [facility] Medical History (Updated 08/29/24 @ 12:52 by Lesli Figueredo, [facility]) Helicobacter pylori (H. pylori) Tubular adenoma of colon Right inguinal hernia Hypovitaminosis D Mixed hyperlipidemia Diabetes mellitus Surgical History History of inguinal hernia repair History of umbilical hernia repair History of tonsillectomy Family History Father Lung cancer Mother Esophageal cancer Brother Throat cancer Social History Housing: Apartment Alcohol intake: current Alcohol intake frequency: a few times a week Alcohol type: beer Patient Tobacco Use Status: Former Tobacco user Tobacco use type: Cigarette Years Smoked: 10 years e-Cigarette/Vaping Use: Never Used Second Hand Smoke Exposure: No service: No Current occupational status: employed Current occupational exposures/hazards: No Cognitive needs: No Hearing needs: No Vision needs: No Review of Systems Const Denies weight gain and Denies weight loss ENT Reports no additional complaints, Denies dysphagia and Denies odynophagia Card Reports no additional complaints Resp Reports no additional complaints GI Denies abdominal pain, Denies belching, Denies melena, Denies bloating, Denies change in bowel habits, Denies dysphagia, Denies excessive flatus, Denies dyspepsia, Denies heartburn, Denies diarrhea, Denies loose stools, Denies nausea, Denies odynophagia and Denies vomiting Reports no additional complaints Musc Reports no additional complaints Neuro Reports no additional complaints Psych Reports no additional complaints Endo Reports no additional complaints Physical Exam Vital Signs: Last Vital Signs Pulse 86 08/29/24 11:59 BP 142/70 H 08/29/24 11:59 Pulse Ox 99 08/29/24 11:59 Oxygen Delivery Method Room Air 08/29/24 11:59 BMI result Body Mass Index 25.9 Const General: healthy appearing, no acute distress and well developed Nutritional Appearance: well nourished Orientation/consciousness: patient oriented x3 Resp Effort & Inspection: normal respiratory effort, able to speak in complete sentences, no tracheal deviation and symmetric chest movement Auscultation: clear to auscultation bilaterally Cardio Rate: regular rate GI Inspection: Yes normal to inspection and No distended Palpation (GI): Soft to palpation, not firm, nontender and No hepatosplenomegaly present Auscultation: normal bowel sounds General: Yes no CVA tenderness Back/Spine/Pelvis Back: no CVA tenderness Skin General skin exam: elasticity normal, turgor normal and dry skin Neuro General: patient oriented x3 Psych Appearance: grossly normal Mental Status: mental status grossly normal Assessment & Plan Assessment & Plan (1) GERD (gastroesophageal reflux disease): Code(s): K21.9 - Gastro-esophageal reflux disease without esophagitis Category: Medical Qualifiers: Esophagitis presence: esophagitis presence not specified Qualified Code(s): K21.9 - Gastro-esophageal reflux disease without esophagitis (2) Tubular adenoma of colon: Code(s): D12.6 - Benign neoplasm of colon, unspecified Category: Medical (3) Postprandial abdominal bloating: Code(s): R14.0 - Abdominal distension (gaseous) (4) Postprandial epigastric pain: Code(s): R10.13 - Epigastric pain (5) Dysphagia: Code(s): R13.10 - Dysphagia, unspecified Qualifiers: Dysphagia type: other dysphagia Qualified Code(s): R13.19 - Other dysphagia (6) Helicobacter pylori (H. pylori): Code(s): A04.8 - Other specified bacterial intestinal infections Category: Medical Plan Patient will continue omeprazole. Quadruple therapy for H pylori. Discussed with patient the importance of finishing of all of his antibiotics. He will need to be retested in the near future. Avoid dietary triggers and late night snacking. Staying upright for minimum 3 hours after meals discussed with patient. Patient was encouraged to increase fluid intake and activity to promote better bowel motility. Tubular adenoma found without high-grade dysp lasia or carcinoma. Patient will repeat colonoscopy in 1 year as he had suboptimal prep. Patient will follow-up in the office in 4 months we will need to retest him for eradication of H pylori. Patient is agreeable to plan of care and verbalizes understanding of instructions. He was given the opportunity to ask questions and all questions answered. Thank you for allowing me to participate in his care Medications: New tetracycline 1,000 mg (2 x 500 mg) PO Q12H 56 caps 0RF A04.8 - Other specified bacterial intestinal infections bismuth subsalicylate 2 tabs PO QID 14 days 112 tabs 0RF A04.8 - Other specified bacterial intestinal infections metronidazole 1,000 mg (2 x 500 mg) PO BID 56 tabs 0RF A04.8 - Other specified bacterial intestinal infections Coding Level of Care Code Est Pt Level 4 (89054) Complex EM visit Add On G2211 Diagnoses Gastroesophageal reflux disease, unspecified whether esophagitis present K21.9 Esophagitis presence: esophagitis presence not specified Tubular adenoma of colon D12.6 Postprandial abdominal bloating R14.0 Postprandial epigastric pain R10.13 Other dysphagia R13.19 Dysphagia type: other dysphagia Helicobacter pylori (H. pylori) A04.8 Time Spent (min) 35 Comment 20 minutes spent with patient and additional 15 minutes spent reviewing his records
== END 2024-08-29 13:01 | disposition home or self-care (01) ==
PROVIDERS: PCP Internal Medicine; Visit Provider Nurse Practitioner Family
DX: K21.9 Gastro-esophageal reflux disease without esophagitis (principal); D12.6 Benign neoplasm of colon, unspecified; R14.0 Abdominal distension (gaseous); R10.13 Epigastric pain; R13.19 Other dysphagia; A04.8 Other specified bacterial intestinal infections
CPT/HCPCS: 99214

== ENCOUNTER → 2024-08-29 11:55 | Outpatient (BNVA) | payer OTHER, SELFPAY | PROVIDERS: PCP Internal Medicine; Visit Provider Nurse Practitioner Family ==

== ENCOUNTER 2024-10-03 15:22 | Outpatient (AMB) | payer OTHER, SELFPAY ==
[2024-10-03 15:44] VITALS: BP 136/80; BMI 26.5
--- NOTE | 2024-10-03 15:44 | A.OFFPC_ITS ---
Vital Signs 10/03/24 15:44 Height 5 ft 6 in Weight 164 lb BMI 26.5 BP 136/80 Blood Pressure Location Lt brachial Position Sitting Intake Visit Reasons: dm Intake Note: Patient here for a follow up DM Retail Seasonal Specialist Required: No Accompanied by: Self / Same As Patient Allergies No Known Allergies Allergy (Verified 10/03/24 15:58) Medication List - Last Reconciled 10/03/24 by Niesha Isabel MD atorvastatin 10 mg PO DAILY bismuth subsalicylate 2 tabs PO QID 14 days blood sugar diagnostic Use 1 test strip once a day blood sugar diagnostic (OneTouch Ultra Test strips) Use 1 test strip once a day blood sugar diagnostic (FreeStyle Test strips) Use 1 test strip once a day blood sugar diagnostic (Contour Next Test Strips) As directed once per day blood-glucose meter (FreeStyle Lite Meter kit) As directed cholecalciferol (vitamin D3) 50 mcg PO DAILY famotidine (Pepcid) 20 mg PO DAILY fenofibrate 54 mg PO DAILY hydroxyzine HCl 50 mg PO TID lancets (FreeStyle Lancets) Use 1 lancet once a day lancets (OneTouch Delica Lancets) Use 1 lancet once a day lancets (Microlet Lancet) As directed once per day lisinopril 10 mg PO DAILY 90 days metformin 1,000 mg PO BID 90 days metronidazole 1,000 mg (2 x 500 mg) PO BID omeprazole 20 mg PO DAILY 90 days tetracycline 1,000 mg (2 x 500 mg) PO Q12H triamcinolone acetonide 0.1% 1 appl topical DAILY 14 days Tobacco use date assessed: 10/03/24 Fall risk assessment: No Falls in past year Last assessed Fall Risk: 10/03/24 Dental Screening Dental Screen Date: 10/03/24 Did you have a dental visit in the last 12 months?: Yes Did you have a dental problem in the last 6 months where you did not have access to dental care?: No Was dental information given to patient?: Patient has dentist HPI HPI Comments History of Present Illness Details The patient is a 64 year old male presenting with concerns related to diabetes, hypertension, hyperlipidemia, and erectile dysfunction. His type 2 diabetes has been challenging to manage recently due to emotional stress caused by a family member with terminal cancer, leading to anxiety. He is currently managing his diabetes with metformin but expresses a desire to avoid transitioning to insulin therapy. His hypertension is being treated with lisinopril, yet he reports unusually high blood pressures since the onset of stress. Hyperlipidemia is managed with atorvastatin 10 mg and fenofibrate. The patient also takes omeprazole for gastroesophageal reflux disease and Pepcid. Recently, he reported erectile dysfunction, potentially correlated with decreased testosterone levels. He denies current alcohol use or consuming opioids, which could exacerbate his ED. Previous testosterone levels indicated were low, and current adjustments are being considered. The patient experiences emotional discomfort regarding his condition's impact on his quality of life. [facility] Medical History (Updated 10/03/24 @ 16:12 by Niesha Isabel MD) Helicobacter pylori (H. pylori) Tubular adenoma of colon Right inguinal hernia Hypovitaminosis D Mixed hyperlipidemia Diabetes mellitus Surgical History History of inguinal hernia repair History of umbilical hernia repair History of tonsillectomy Family History Father Lung cancer Mother Esophageal cancer Brother Throat cancer Social History Housing: Apartment Alcohol intake: current Alcohol intake frequency: a few times a week Alcohol type: beer Patient Tobacco Use Status: Former Tobacco user Tobacco use type: Cigarette Years Smoked: 10 years e-Cigarette/Vaping Use: Never Used Second Hand Smoke Exposure: No service: No Current occupational status: employed Current occupational exposures/hazards: No Cognitive needs: No Hearing needs: No Vision needs: No Questionnaire PHQ-9 Over the last 2 weeks, how often have you been bothered by any of the following problems? 1. Little interest or pleasure in doing things: not at all 2. Feeling down, depressed, or hopeless: several days 3. Trouble falling or staying asleep, or sleeping too much: not at all 4. Feeling tired or having little energy: not at all 5. Poor appetite or overeating: not at all 6. Feeling bad about yourself - or that you are a failure or have let yourself or your family down: not at all 7. Trouble concentrating on things, such as reading the newspaper or watching television: not at all 8. Moving or speaking so slowly that other people could have noticed. Or the opposite - being so fidgety or restless that you have been moving around a lot more than usual: not at all 9. Thoughts that you would be better off or of hurting yourself in some way: not at all Total score: 1 Depression Screening Interpretation: Negative Depression Screening Done: Yes 96960 - PHQ-9 Billing: Yes Source: Developed by Drs. Vivek Esteban, Kaykay Iglesias, Charles Rodriguez and colleagues, with an educational fei from [employer]. Thrive Questionnaire Date Thrive assessed: 10/03/24 I am a: Patient What is your living situation today?: I have a steady place to live Within the past 12 months, did the food you bought not last and you didn't have the money to get more?: Never true Within the past 12 months, did you worry whether your food would run out before you got money to buy more?: Never true Do you have trouble paying for medicines?: No Do you have trouble getting transportation to medical appointments?: No Do you have trouble paying your heating and electricity bill?: No Do you have trouble taking care of your child, family member or friend?: No Do you have trouble with day-to-day activities such as bathing, preparing meals, shopping, managing finances, etc.?: No Are you currently unemployed and looking for a job?: No Are you interested in more education?: No Please select the resources that you would like help with: None Currently or been in a relationship where the following occur: No concerns reported THRIVE Score: 0 AUDIT C Alcohol Use Questionnaire (AUDIT-C) 1. How often do you have a drink containing alcohol?: 2-4 times a month 2. How many drinks containing alcohol do you have on a typical day when you are drinking?: 1 or 2 3. How often do you have six or more drinks on one occasion?: Never Total Score: 2 Score Reviewed/Action Taken: No MICHAEL-7 AMB Questionnaire MICHAEL-7 Date MICHAEL - 7 assessed: 10/03/24 Feeling nervous, anxious, or on edge: 1 = Several days Not being able to stop or control worryin = Not at all Worrying too much about different things: 1 = Several days Trouble relaxin = Not at all Being so restless that it is hard to sit still: 0 = Not at all Becoming easily annoyed or irritable: 0 = Not at all Feeling afraid as if something awful might happen: 0 = Not at all Total MICHAEL-7 score (0-4 normal; 5-9 mild; 10-14 moderate; 15-21 severe): 2 Source: Developed by Drs. Vivek Esteban, Kaykay Iglesias, Charles Rodriguez and colleagues, with an educational fei from [employer]. MICHAEL-7 Assessment Billing MICHAEL-7 Assessment Tool: MICHAEL-7 Assessment 97245 Review of Systems Const All systems reviewed & are unremarkable except as noted in HPI and below Card Denies chest pain at rest, Denies chest pain with activity, Denies edema, Denies irregular heart rhythm, Denies claudication, Denies dyspnea, Denies dyspnea on exertion, Denies orthopnea, Denies paroxysmal nocturnal dyspnea and Denies slow heart rate Resp Denies cough, Denies dyspnea and Denies dyspnea on exertion GI Denies abdominal pain, Denies change in bowel habits, Denies excessive flatus, Denies nausea and Denies vomiting Neuro Denies behavioral changes and Denies lack of coordination Psych Denies behavioral changes Physical exam (Primary Care) Vital Signs: Last Vital Signs BP 136/80 10/03/24 15:44 BMI result Body Mass Index 26.5 Tobacco/Smoking Status: Tobacco use Status Tobacco use date assessed 10/03/24 10/03/24 15:48 Patient Tobacco Use Status Former Tobacco user 10/03/24 15:48 Tobacco use type Cigarette 10/03/24 15:48 e-Cigarette/Vaping Use Never Used 10/03/24 15:48 PHQ-9: PHQ-9 Score PHQ-9: Total score 1 10/03/24 16:18 Depression Screening Interpretation: Negative Thrive Assessment: Date of Thrive Assessment Date Thrive assessed 10/03/24 10/03/24 15:48 Currently or been in a relationship where the following occur: No concerns reported Resp Effort & Inspection: normal respiratory effort Auscultation: clear to auscultation bilaterally Cardio Jugular venous distension: no JVD Rate: regular rate Rhythm: regular rhythm Heart sounds: S1 normal heart sound present and S2 normal heart sound present Extrem General: Yes full ROM Results AMB Hemoglobin A1c AMB Hemoglobin A1c 6.9 % Last Edit by MALCOLM Almaraz on 10/03/24 16:1 8 Results Reviewed Results Reviewed: Laboratory Last Values Hgb A1c (Clinic) 6.9 % (4.0-6.0) H 10/03/24 15:41 Coding Level of Care Code Est Pt Level 4 (65571) Complex EM visit Add On G2211 Diagnoses Erectile dysfunction N52.9 Type 2 diabetes mellitus without complication, without long-term current use of insulin E11.9 Diabetes mellitus type: type 2 Diabetes mellitus retirement insulin use: without filler leaf cutter long use Diabetes mellitus complication status: without complication Mixed hyperlipidemia E78.2 Essential hypertension I10 Gastroesophageal reflux disease, unspecified whether esophagitis present K21.9 Esophagitis presence: esophagitis presence not specified Additional Codes MICHAEL-7 Assessment Billing - MICHAEL-7 Assessment Tool: MICHAEL-7 Assessment 13000 ([id number]) PHQ-9 - 77643 - PHQ-9 Billing: Yes ([id number]) Time Spent (min) 23 Assessment & Plan Assessment & Plan (1) Erectile dysfunction: Code(s): N52.9 - Male erectile dysfunction, unspecified Category: Medical (2) Diabetes mellitus: Code(s): E11.9 - Type 2 diabetes mellitus without complications Category: Medical Qualifiers: Diabetes mellitus type: type 2 Diabetes mellitus filler leaf cutter long insulin use: without retirement use Diabetes mellitus complication status: without complication Qualified Code(s): E11.9 - Type 2 diabetes mellitus without complications (3) Mixed hyperlipidemia: Code(s): E78.2 - Mixed hyperlipidemia Category: Medical (4) Essential hypertension: Code(s): I10 - Essential (primary) hypertension Category: Medical (5) GERD (gastroesophageal reflux disease): Code(s): K21.9 - Gastro-esophageal reflux disease without esophagitis Category: Medical Qualifiers: Esophagitis presence: esophagitis presence not specified Qualified Code(s): K21.9 - Gastro-esophageal reflux disease without esophagitis Plan - Continue monitoring blood glucose closely and further discuss potential interventions to optimize diabetic control. - Maintain current antihypertensive regimen with lisinopril, monitoring for blood pressure improvements. - Continue atorvastatin for cholesterol management; consider increasing dose if targets are not achieved. - Re-evaluate testosterone levels and consider hormone replacement therapy if levels remain low and erectile dysfunction persists. - Conduct annual vitamin D screening and continue supplementation as indicated. - Schedule follow-up in December to re-assess all management plans and adjust as necessary based on lab results. Patient was informed and verbally consented to the use of an ambient scribe for clinic note documentation during this visit. During the conversation, we discussed the patient's current management and concerns extensively. Given his elevated stress and its impact on diabetes and hypertension, I emphasized the importance of stress management strategies. We reviewed his concern about erectile dysfunction, and I explained the benefits, risks, and alternatives of medical treatments, including testosterone replacement therapy if warranted by testing. I conveyed the implications of continuing current medications and potential modifications. We also addressed the importance of maintaining appointments for lab tests. I encouraged compliance with the medication regimen and returning for a comprehensive review of all chronic conditions to enhance quality of life. Orders: Orders Lipid Panel 3 Months E78.5 - Hyperlipidemia, unspecified Microalbumin, Random (w Creat) 3 Months R80.9 - Proteinuria, unspecified Vitamin D 25-OH Total 3 Months E55.9 - Vitamin D deficiency, unspecified Comprehensive Davis. Panel Fast 3 Months E11.9 - Type 2 diabetes mellitus without complications AMB Hemoglobin A1c Today E11.9 - Type 2 diabetes mellitus without complications Testosterone, Free/Total Today N52.9 - Male erectile dysfunction, unspecified Medications: New tadalafil administer approximately 30min before sexual activity; do not use more than 1 dose per 24hrs 20 mg PO DAILY PRN 3 tabs 1RF sexual activity 3 days Refilled cholecalciferol (vitamin D3) 50 mcg PO DAILY 90 caps 3RF Patient Instructions: - Monitor blood glucose levels regularly and record them. - Take medications as prescribed and do not skip doses. - Continue with current dietary practices and include stress-reduction techniques if possible. - Keep scheduled follow-up appointment for lab tests in December. - Seek care immediately if you experience new symptoms or significant changes in your current health status. - Contact the office with any questions or concerns regarding your medications or symptoms.
== END 2024-10-03 16:16 | disposition home or self-care (01) ==
PROVIDERS: PCP Internal Medicine; Visit Provider Internal Medicine
DX: N52.9 Male erectile dysfunction, unspecified (principal); E11.9 Type 2 diabetes mellitus without complications; E78.2 Mixed hyperlipidemia; I10 Essential (primary) hypertension; K21.9 Gastro-esophageal reflux disease without esophagitis

== ENCOUNTER → 2024-10-03 15:22 | Outpatient (BNVA) | payer OTHER, SELFPAY | PROVIDERS: PCP Internal Medicine; Visit Provider Internal Medicine | DX: E11.9 Type 2 diabetes mellitus without complications (principal); N52.9 Male erectile dysfunction, unspecified; E78.2 Mixed hyperlipidemia; I10 Essential (primary) hypertension; K21.9 Gastro-esophageal reflux disease without esophagitis | CPT/HCPCS: 83036; 96127 ==

== ENCOUNTER 2024-10-08 07:10 | Outpatient (REF) | payer OTHER, SELFPAY ==
[2024-10-08 08:15] LABS: Alanine Aminotransferase 13 U/L (0-40); Albumin Level 4.5 g/dL (3.5-5.0); Alkaline Phosphatase 35 U/L (39-117); Anion Gap 10 (12-20); Aspartate Amino Transferase 16 U/L (5-37); Bilirubin Total 0.4 mg/dL (0.0-1.0); Blood Urea Nitrogen 14 mg/dL (9-16); Calcium 9.4 mg/dL (8.4-10.2); Carbon Dioxide 30 mmol/L (22-29); Chloride 105 mmol/L (96-108); Cholesterol 138 mg/dL (<200); Estimated Glomerular Filt Rate > 60; Glucose Fasting 151 mg/dL (60-99); HDL Cholesterol 67 mg/dL (>40); LDL Cholesterol Calculated 56 mg/dL (<100); Potassium 4.5 mmol/L (3.3-5.1); Sodium 140 mmol/L (135-145); Total Protein 7.3 g/dL (6.5-8.0); Triglycerides 79 mg/dL (<150)
[2024-10-08 11:31] LABS: Creatinine Urine 76.24 mg/dL; Microalbum/Creatinine Ratio Ur 30.1 ug/mg cr (<30)
[2024-10-22 14:29] LABS: Testosterone, Total 325 ng/dL (250-1100)
== END 2024-10-08 07:11 | disposition home or self-care (01) ==
LOC: HO.LAB 07:10
PROVIDERS: PCP Internal Medicine; Visit Provider Internal Medicine
DX: E11.9 Type 2 diabetes mellitus without complications (principal); N52.9 Male erectile dysfunction, unspecified; E78.5 Hyperlipidemia, unspecified
CPT/HCPCS: 36415; 80053; 80061; 82043; 82570; 84402; 84403

== ENCOUNTER 2024-12-28 15:29 | Outpatient (AMB) | payer OTHER, SELFPAY ==
--- NOTE | 2024-12-28 15:33 | MHC.OFFVIS ---
Vital Signs 12/28/24 15:43 Height 5 ft 6 in Weight 166 lb 10.711 oz BMI 26.9 BP 138/64 Blood Pressure Location Rt brachial Position Sitting Pulse 70 Pulse Source Pulse Oximeter Pulse Oximetry (%) 99 Oxygen Delivery Method Room Air Intake Visit Reasons: GERD, recheck H pylori 4 m f/u Intake Note: ESTABLISHED PATIENT for mgmt s/p H Pylori tx at last visit. Chief Complaint; Pt denies any GI concerns at this time. Medications for maintenance are still managing sx well. Pt reports that H Pylori tx appears to have been effective. Bmw Sales Consultant Required: Yes Bmw Sales Consultant Services: [employer]mw Sales Consultant Present Bmw Sales Consultant Name: Linda [id number] Information Interpreted: clinical only Accompanied by: Self / Same As Patient Allergies No Known Allergies Allergy (Verified 12/28/24 15:33) HPI HPI GERD, recheck H pylori 4 m f/u: Details: LAST VISIT: GERD (gastroesophageal reflux disease) Tubular adenoma of colon Postprandial abdominal bloating Postprandial epigastric pain Dysphagia Helicobacter pylori (H. pylori) Plan Patient will continue omeprazole. Quadruple therapy for H pylori. Discussed with patient the importance of finishing of all of his antibiotics. He will need to be retested in the near future. Avoid dietary triggers and late night snacking. Staying upright for minimum 3 hours after meals discussed with patient. Patient was encouraged to increase fluid intake and activity to promote better bowel motility. Tubular adenoma found without high-grade dysplasia or carcinoma. Patient will repeat colonoscopy in 1 year as he had suboptimal prep. Patient will follow-up in the office in 4 months we will need to retest him for eradication of H pylori. Patient is agreeable to plan of care and verbalizes understanding of instructions. He was given the opportunity to ask questions and all questions answered. ? Thank you for allowing me to participate in his care Medications New tetracycline 1,000 mg (2 x 500 mg) PO Q12H 56 caps 0RF A04.8 bismuth subsalicylate 2 tabs PO QID 14 days 112 tabs 0RF A04.8 metronidazole 1,000 mg (2 x 500 mg) PO BID 56 tabs 0RF A04.8 PFSH Medical History Helicobacter pylori (H. pylori) Tubular adenoma of colon Right inguinal hernia Hypovitaminosis D Mixed hyperlipidemia Diabetes mellitus Surgical History History of inguinal hernia repair History of umbilical hernia repair History of tonsillectomy Family History Father Lung cancer Mother Esophageal cancer Brother Throat cancer Social History Housing: Apartment Alcohol intake: current Alcohol intake frequency: a few times a week Alcohol type: beer Patient Tobacco Use Status: Former Tobacco user Tobacco use type: Cigarette Years Smoked: 10 years e-Cigarette/Vaping Use: Never Used Second Hand Smoke Exposure: No service: No Current occupational status: employed Current occupational exposures/hazards: No Cognitive needs: No Hearing needs: No Vision needs: No Review of Systems Const Denies weight gain and Denies weight loss ENT Reports no additional complaints, Denies dysphagia and Denies odynophagia Card Reports no additional complaints Resp Reports no additional complaints GI Denies abdominal pain, Denies belching, Denies melena, Denies bloating, Denies change in bowel habits, Denies dysphagia, Denies excessive flatus, Denies dyspepsia, Denies heartburn, Denies diarrhea, Denies loose stools, Denies nausea, Denies odynophagia and Denies vomiting Reports no additional complaints Musc Reports no additional complaints Neuro Reports no additional complaints Psych Reports no additional complaints Endo Reports no additional complaints Physical Exam Vital Signs: Last Vital Signs Pulse 70 12/28/24 15:43 BP 138/64 12/28/24 15:43 Pulse Ox 99 12/28/24 15:43 Oxygen Delivery Method Room Air 12/28/24 15:43 BMI result Body Mass Index 26.9 Const General: healthy appearing, no acute distress and well developed Nutritional Appearance: well nourished Orientation/consciousness: patient oriented x3 Resp Effort & Inspection: normal respiratory effort, able to speak in complete sentences, no tracheal deviation and symmetric chest movement Auscultation: clear to auscultation bilaterally Cardio Rate: regular rate GI Inspection: Yes normal to inspection and No distended Palpation (GI): Soft to palpation, not firm, nontender and No hepatosplenomegaly present Auscultation: normal bowel sounds General: Yes no CVA tenderness Back/Spine/Pelvis Back: no CVA tenderness Skin General skin exam: elasticity normal, turgor normal and dry skin Neuro General: patient oriented x3 Psych Appearance: grossly normal Mental Status: mental status grossly normal Assessment & Plan Assessment & Plan (1) GERD (gastroesophageal reflux disease): Code(s): K21.9 - Gastro-esophageal reflux disease without esophagitis Category: Medical Qualifiers: Esophagitis presence: esophagitis presence not specified Qualified Code(s): K21.9 - Gastro-esophageal reflux disease without esophagitis (2) Helicobacter pylori (H. pylori): Code(s): A04.8 - Other specified bacterial intestinal infections Category: Medical (3) Postprandial abdominal bloating: Code(s): R14.0 - Abdominal distension (gaseous) (4) Postprandial epigastric pain: Code(s): R10.13 - Epigastric pain Plan: resolved Plan Continue omeprazole daily. Avoid dietary triggers and late night snacking. Staying upright for minimum 3 hours after meals discussed with patient. Patient will need to return for retesting for H pylori. At this time patient does not have any dyspepsia, dysphagia or odynophagia. Denies any acid reflux. He will return in 3 months and we will test him then. Please call patient and make sure that he will stop taking omeprazole 2 weeks before his visit. NPO 1 hour before his visit. Patient is agreeable to current plan of care and verbalizes understanding of instructions. He was given the opportunity to ask questions and all questions answered. Thank you for allowing me to participate in his care Medications: Discontinued famotidine Discontinued Reason: Doctor's Order 20 mg PO DAILY 7 tabs 0RF Coding Level of Care Code Est Pt Level 4 (55790) Complex EM visit Add On G2211 Diagnoses Gastroesophageal reflux disease, unspecified whether esophagitis present K21.9 Esophagitis presence: esophagitis presence not specified Helicobacter pylori (H. pylori) A04.8 Postprandial abdominal bloating R14.0 Postprandial epigastric pain R10.13 Time Spent (min) 35 Comment 20 minutes spent with patient and additional 15 minutes spent reviewing his records
[2024-12-28 15:43] VITALS: BP 138/64; PULSE 70; O2SAT 99; BMI 26.9
== END 2024-12-28 15:50 | disposition home or self-care (01) ==
LOC: HO.HGI 15:29
PROVIDERS: PCP Internal Medicine; Visit Provider Nurse Practitioner Family
DX: K21.9 Gastro-esophageal reflux disease without esophagitis (principal); A04.8 Other specified bacterial intestinal infections; R14.0 Abdominal distension (gaseous); R10.13 Epigastric pain
CPT/HCPCS: 99214

== ENCOUNTER → 2024-12-28 15:29 | Outpatient (BNVA) | payer OTHER, SELFPAY | PROVIDERS: PCP Internal Medicine; Visit Provider Nurse Practitioner Family ==

== ENCOUNTER 2025-01-07 07:05 | Outpatient (REF) | payer OTHER, SELFPAY ==
[2025-01-07 08:10] LABS: Alanine Aminotransferase 16 U/L (0-40); Albumin Level 4.5 g/dL (3.5-5.0); Alkaline Phosphatase 33 U/L (39-117); Aspartate Amino Transferase 21 U/L (5-37); Bilirubin Total 0.5 mg/dL (0.0-1.0); Blood Urea Nitrogen 8 mg/dL (9-16); Calcium 9.5 mg/dL (8.4-10.2); Cholesterol 128 mg/dL (<200); Estimated Glomerular Filt Rate > 60; Glucose Fasting 129 mg/dL (60-99); HDL Cholesterol 63 mg/dL (>40); LDL Cholesterol Calculated 40 mg/dL (<100); Triglycerides 129 mg/dL (<150)
[2025-01-07 08:10] LABS: Creatinine Urine 63.93 mg/dL; Microalbum/Creatinine Ratio Ur 18.7 ug/mg cr (<30)
[2025-01-07 08:21] LABS: Anion Gap 12 (12-20); Carbon Dioxide 28 mmol/L (22-29); Chloride 103 mmol/L (96-108); Potassium 4.3 mmol/L (3.3-5.1); Sodium 139 mmol/L (135-145)
[2025-01-07 08:34] LABS: Vitamin D 25-OH Total 30.8 ng/mL (>30)
== END 2025-01-07 07:06 | disposition home or self-care (01) ==
LOC: HO.LAB 07:05
PROVIDERS: PCP Internal Medicine; Visit Provider Internal Medicine
DX: E11.9 Type 2 diabetes mellitus without complications (principal); E78.5 Hyperlipidemia, unspecified; E55.9 Vitamin D deficiency, unspecified
CPT/HCPCS: 36415; 80053; 80061; 82043; 82306; 82570

== ENCOUNTER 2025-01-16 15:52 | Outpatient (AMB) | payer OTHER, SELFPAY ==
[2025-01-16 16:00] VITALS: BP 132/70; PULSE 74; O2SAT 98; BMI 26.5
--- NOTE | 2025-01-16 16:00 | MHC.PC.OV ---
Vital Signs 01/16/25 16:00 Height 5 ft 6 in Weight 164 lb BMI 26.5 BP 132/70 Blood Pressure Location Lt brachial Position Sitting Pulse 74 Pulse Source Pulse Oximeter Pulse Oximetry (%) 98 Oxygen Delivery Method Room Air Intake Visit Reasons: annual exam Recovery Assistant Required: No Accompanied by: Self / Same As Patient Allergies No Known Allergies Allergy (Verified 01/16/25 16:08) Medication List - Last Reconciled 01/16/25 by Niesha Isabel MD atorvastatin 10 mg PO DAILY blood sugar diagnostic Use 1 test strip once a day blood sugar diagnostic (OneTouch Ultra Test strips) Use 1 test strip once a day blood sugar diagnostic (FreeStyle Test strips) Use 1 test strip once a day blood sugar diagnostic (Contour Next Test Strips) As directed once per day blood-glucose meter (FreeStyle Lite Meter kit) As directed cholecalciferol (vitamin D3) 50 mcg PO DAILY fenofibrate 54 mg PO DAILY hydrocortisone-pramoxine 2.5-1 % 1 appl PA BID PRN hydroxyzine HCl 50 mg PO TID lancets (FreeStyle Lancets) Use 1 lancet once a day lancets (OneTouch Delica Lancets) Use 1 lancet once a day lancets (Microlet Lancet) As directed once per day lisinopril 10 mg PO DAILY 90 days metformin 1,000 mg PO BID 90 days omeprazole 20 mg PO DAILY tadalafil 20 mg PO DAILY PRN 3 days triamcinolone acetonide 0.1% 1 appl topical DAILY 14 days Tobacco use date assessed: 01/16/25 Fall risk assessment: No Falls in past year Last assessed Fall Risk: 01/16/25 Dental Screening Dental Screen Date: 10/03/24 HPI HPI Comments History of Present Illness Details The patient is a 64-year-old male presenting for an annual physical examination. His medical history is significant for Type 2 Diabetes Mellitus, effectively managed with Metformin, as demonstrated by an A1c of 6.4%. He also has hypertension, controlled without recent symptoms of concern, and hyperlipidemia, effectively managed with Atorvastatin and Fenofibrate, achieving an LDL level below 70 mg/dL. He employs Omeprazole to manage GERD and occasionally uses Tadalafil for erectile dysfunction. The patient denies allergies to medications. He has a history of lumbar hernia surgery and a familial cancer risk, including lung, esophageal, and throat cancers. A recent colonoscopy in July 2024 revealed non-cancerous polyps, and despite recommendations for a repeat in one year due to poor preparation, the patient considers extending the interval based on standard practices and insurance guidelines. The patient is a 64-year-old male presenting for an annual physical examination. His medical history is significant for Type 2 Diabetes Mellitus, effectively managed with Metformin, as demonstrated by an A1c of 6.4%. He also has hypertension, controlled without recent symptoms of concern, and hyperlipidemia, effectively managed with Atorvastatin and Fenofibrate, achieving an LDL level below 70 mg/dL. He employs Omeprazole to manage GERD and occasionally uses Tadalafil for erectile dysfunction. The patient denies allergies to medications. He has a history of lumbar hernia surgery and a familial cancer risk, including lung, esophageal, and throat cancers. A recent colonoscopy in July 2024 revealed non-cancerous polyps, and despite recommendations for a repeat in one year due to poor preparation, the patient considers extending the interval based on standard practices and insurance guidelines. - Annual physical exam - Diabetes: A1c at 6.4%, indicating good control - Lipid management: LDL less than 70 mg/dL - Blood pressure controlled without symptoms - Colonoscopy in July 2024; discussed potential need for early repeat - Tetanus vaccination up to date, next due in 2028 - Annual physical exam - Diabetes: A1c at 6.4%, indicating good control - Lipid management: LDL less than 70 mg/dL - Blood pressure controlled without symptoms - Colonoscopy in July 2024; discussed potential need for early repeat - Tetanus vaccination up to date, next due in 2028 [facility] Medical History Helicobacter pylori (H. pylori) Tubular adenoma of colon Right inguinal hernia Hypovitaminosis D Mixed hyperlipidemia Diabetes mellitus Surgical History History of inguinal hernia repair History of umbilical hernia repair History of tonsillectomy Family History Father Lung cancer Mother Esophageal cancer Brother Throat cancer Social History Housing: Apartment Alcohol intake: current Alcohol intake frequency: a few times a week Alcohol type: beer Patient Tobacco Use Status: Former Tobacco user Tobacco use type: Cigarette Years Smoked: 10 years e-Cigarette/Vaping Use: Never Used Second Hand Smoke Exposure: No service: No Current occupational status: employed Current occupational exposures/hazards: No Cognitive needs: No Hearing needs: No Vision needs: No Questionnaire PHQ-9 Over the last 2 weeks, how often have you been bothered by any of the following problems? 1. Little interest or pleasure in doing things: not at all 2. Feeling down, depressed, or hopeless: not at all 3. Trouble falling or staying asleep, or sleeping too much: not at all 4. Feeling tired or having little energy: not at all 5. Poor appetite or overeating: not at all 6. Feeling bad about yourself - or that you are a failure or have let yourself or your family down: not at all 7. Trouble concentrating on things, such as reading the newspaper or watching television: not at all 8. Moving or speaking so slowly that other people could have noticed. Or the opposite - being so fidgety or restless that you have been moving around a lot more than usual: not at all 9. Thoughts that you would be better off or of hurting yourself in some way: not at all Total score: 0 Depression Screening Interpretation: Negative Depression Screening Done: Yes 48495 - PHQ-9 Billing: Yes Source: Developed by Drs. Vivek Esteban, Kaykay Iglesias, Charles Rodriguez and colleagues, with an educational fei from [employer]. Thrive Questionnaire Date Thrive assessed: 10/03/24 I am a: Patient What is your living situation today?: I have a steady place to live Within the past 12 months, did the food you bought not last and you didn't have the money to get more?: I choose not to answer this question Within the past 12 months, did you worry whether your food would run out before you got money to buy more?: Never true Do you have trouble paying for medicines?: No Do you have trouble getting transportation to medical appointments?: No Do you have trouble paying your heating and electricity bill?: No Do you have trouble taking care of your child, family member or friend?: No Do you have trouble with day-to-day activities such as bathing, preparing meals, shopping, managing finances, etc.?: No Are you currently unemployed and looking for a job?: I choose not to answer this question Are you interested in more education?: I choose not to answer this question Please select the resources that you would like help with: None Currently or been in a relationship where the following occur: I choose not to answer THRIVE Score: 0 AUDIT C Alcohol Use Questionnaire (AUDIT-C) 1. How often do you have a drink containing alcohol?: Monthly or less 2. How many drinks containing alcohol do you have on a typical day when you are drinking?: 1 or 2 3. How often do you have six or more drinks on one occasion?: Never Total Score: 1 Score Reviewed/Action Taken: No MICHAEL-7 AMB Questionnaire MICHAEL-7 Date MICHAEL - 7 assessed: 10/03/24 Feeling nervous, anxious, or on edge: 0 = Not at all Not being able to stop or control worryin = Not at all Worrying too much about different things: 0 = Not at all Trouble relaxin = Not at all Being so restless that it is hard to sit still: 0 = Not at all Becoming easily annoyed or irritable: 0 = Not at all Feeling afraid as if something awful might happen: 0 = Not at all Total MICHAEL-7 score (0-4 normal; 5-9 mild; 10-14 moderate; 15-21 severe): 0 Source: Developed by Drs. Vivek Esteban, Kaykay Iglesias, Charles Rodriguez and colleagues, with an educational fei from [employer]. MICHAEL-7 Assessment Billing MICHAEL-7 Assessment Tool: MICHAEL-7 Assessment 39654 Review of Systems Const All systems reviewed & are unremarkable except as noted in HPI and below Card Denies chest pain at rest, Denies chest pain with activity, Denies edema, Denies irregular heart rhythm, Denies claudication, Denies dyspnea, Denies dyspnea on exertion, Denies orthopnea, Denies paroxysmal nocturnal dyspnea and Denies slow heart rate Resp Denies cough, Denies dyspnea and Denies dyspnea on exertion Physical exam (Primary Care) Vital Signs: Last Vital Signs Pulse 74 01/16/25 16:00 BP 132/70 01/16/25 16:00 Pulse Ox 98 01/16/25 16:00 Oxygen Delivery Method Room Air 01/16/25 16:00 BMI result Body Mass Index 26.5 Tobacco/Smoking Status: Tobacco use Status Tobacco use date assessed 01/16/25 01/16/25 16:05 Patient Tobacco Use Status Former Tobacco user 01/16/25 16:05 Tobacco use type Cigarette 01/16/25 16:05 e-Cigarette/Vaping Use Never Used 01/16/25 16:05 PHQ-9: PHQ-9 Score PHQ-9: Total score 0 01/16/25 16:05 Depression Screening Interpretation: Negative Thrive Assessment: Date of Thrive Assessment Date Thrive assessed 10/03/24 01/16/25 16:05 Currently or been in a relationship where the following occur: I choose not to answer HENMT Head: Yes normal to inspection, Yes normocephalic and Yes atraumatic Ears: external ears normal Eyes General: appearance normal, both eyes and all related structures Eyelids: Yes eyelids normal Conjunctivae: conjunctivae normal Neck Neck: Yes normal visual inspection and Yes supple Resp Effort & Inspection: normal respiratory effort Auscultation: clear to auscultation bilaterally Cardio Jugular venous distension: no JVD Rate: regular rate Rhythm: regular rhythm Heart sounds: S1 normal heart sound present and S2 normal heart sound present GI Inspection: Yes normal to inspection Palpation (GI): Soft to palpation and nontender Auscultation: normal bowel sounds Skin General skin exam: no rashes or lesions noted Neuro General: no focal motor deficits Extrem General: Yes full ROM Psych Appearance: grossly normal Coding Level of Care Code Est Pt Prev Care 40-64y(97003) Diagnoses Physical exam Z00.00 Type 2 diabetes mellitus without complication, without long-term current use of insulin E11.9 Diabetes mellitus type: type 2 Diabetes mellitus special procedures technologist insulin use: without special procedures technologist use Diabetes mellitus complication status: without complication Additional Codes PHQ-9 - 65325 - PHQ-9 Billing: Yes ([id number]) MICHAEL-7 Assessment Billing - MICHAEL-7 Assessment Tool: MICHAEL-7 Assessment 00923 ([id number]) Time Spent (min) 31 Assessment & Plan Assessment & Plan (1) Physical exam: Code(s): Z00.00 - Encounter for general adult medical examination without abnormal findings Category: Medical (2) Diabetes mellitus: Code(s): E11.9 - Type 2 diabetes mellitus without complications Category: Medical Qualifiers: Diabetes mellitus type: type 2 Diabetes mellitus fdc insulin use: without fdc use Diabetes mellitus complication status: without complication Qualified Code(s): E11.9 - Type 2 diabetes mellitus without complications Plan Maintain Atorvastatin and Fenofibrate therapy for hyperlipidemia to ensure LDL levels remain below 70 mg/dL. His hypertension, well controlled with Lisinopril, requires regular blood pressure monitoring. GERD management with Omeprazole is effective and should continue. The colonoscopy result showing non-cancerous polyps needs further consideration regarding the next procedure's timing due to preparation issues. Given the family history, we will be vigilant with cancer screenings. There are ongoing discussions about the insured coverage for an earlier colonoscopy repeat. Erectile dysfunction is managed with Tadalafil as needed. Patient was informed and verbally consented to the use of an ambient scribe for clinic note documentation during this visit. We discussed the patient?s current status regarding his diabetes management, confirming that his A1c of 6.4% reflects good control with Metformin. Lipid management is also effective, with LDL levels maintained below target through Atorvastatin and Fenofibrate. Regarding hypertension, ongoing control with Lisinopril was noted, and the patient confirmed the absence of chest pain or breathlessness. For GERD, the use of Omeprazole continues as it effectively manages his symptoms. The patient?s recent colonoscopy findings and subsequent recommendation for a shorter interval repeat were addressed in light of the procedural preparation and insurance coverage considerations. We discussed maintaining regular screening due to a significant family history of various cancers. The continuation of exercise and medication regimes, as well as routine follow-up appointments, was emphasized for optimal health maintenance. We discussed the patient?s current status regarding his diabetes management, confirming that his A1c of 6.4% reflects good control with Metformin. Lipid management is also effective, with LDL levels maintained below target through Atorvastatin and Fenofibrate. Regarding hypertension, ongoing control with Lisinopril was noted, and the patient confirmed the absence of chest pain or breathlessness. For GERD, the use of Omeprazole continues as it effectively manages his symptoms. The patient?s recent colonoscopy findings and subsequent recommendation for a shorter interval repeat were addressed in light of the procedural preparation and insurance coverage considerations. We discussed maintaining regular screening due to a significant family history of various cancers. The continuation of exercise and medication regimes, as well as routine follow-up appointments, was emphasized for optimal health maintenance. Orders: Orders Lipid Panel 4 Months E78.5 - Hyperlipidemia, unspecified Microalbumin, Random (w Creat) 4 Months R80.9 - Proteinuria, unspecified Vitamin D 25-OH Total 4 Months E55.9 - Vitamin D deficiency, unspecified Comprehensive [place]. Panel Fast 4 Months E11.9 - Type 2 diabetes mellitus without complications Patient Instructions: - Continue Metformin as prescribed for diabetes management. - Take Atorvastatin and Fenofibrate to maintain cholesterol levels. - Use Lisinopril daily for blood pressure control. - Use Omeprazole for GERD as needed. - Discuss with the insurance provider regarding the timing and coverage of the follow-up colonoscopy. - Follow up with routine health screenings, considering family history of cancer. - Regularly monitor blood pressure and report any changes in symptoms. - Maintain a healthy lifestyle with regular exercise. - Follow up annually for full physical and eye examinations. - Continue Metformin as prescribed for diabetes management. - Take Atorvastatin and Fenofibrate to maintain cholesterol levels. - Use Lisinopril daily for blood pressure control. - Use Omeprazole for GERD as needed. - Discuss with the insurance provider regarding the timing and coverage of the follow-up colonoscopy. - Follow up with routine health screenings, considering family history of cancer. - Regularly monitor blood pressure and report any changes in symptoms. - Maintain a healthy lifestyle with regular exercise. - Follow up annually for full physical and eye examinations.
== END 2025-01-16 16:22 | disposition home or self-care (01) ==
LOC: HO.HMCH 15:52
PROVIDERS: PCP Internal Medicine; Visit Provider Internal Medicine
DX: Z00.00 Encounter for general adult medical examination without abnormal findings (principal); E11.9 Type 2 diabetes mellitus without complications

== ENCOUNTER → 2025-01-16 15:52 | Outpatient (BNVA) | payer OTHER, SELFPAY | PROVIDERS: PCP Internal Medicine; Visit Provider Internal Medicine | DX: Z00.00 Encounter for general adult medical examination without abnormal findings (principal); E11.9 Type 2 diabetes mellitus without complications; E78.5 Hyperlipidemia, unspecified; I10 Essential (primary) hypertension; Z79.899 Other long term (current) drug therapy | CPT/HCPCS: 96127 ==

== ENCOUNTER 2025-03-31 15:23 | Outpatient (AMB) | payer OTHER, SELFPAY ==
--- NOTE | 2025-03-31 15:34 | A.OFFVIS_ITS ---
Vital Signs 03/31/25 15:36 Height 5 ft 6 in Weight 167 lb BMI 27.0 BP 126/51 L Blood Pressure Location Lt brachial Position Sitting Pulse 75 Pulse Oximetry (%) 75 L Oxygen Delivery Method Room Air Intake Visit Reasons: 3m Intake Note: Patient 3 month follow up for GERD. Patient cc: esophagus discomfort/chocking sensation with SOB, abdominal bloating, chest discomfort, behind tongue he feel discomfort. 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 pylori) Postprandial abdominal bloating Postprandial epigastric pain resolved Plan Continue omeprazole daily. Avoid dietary triggers and late night snacking. Staying upright for minimum 3 hours after meals discussed with patient. Patient will need to return for retesting for H pylori. At this time patient does not have any dyspepsia, dysphagia or odynophagia. Denies any acid reflux. He will return in 3 months and we will test him then. Please call patient and make sure that he will stop taking omeprazole 2 weeks before his visit. NPO 1 hour before his visit. Patient is agreeable to current plan of care and verbalizes understanding of instructions. He was given the opportunity to ask questions and all questions answered. ? Thank you for allowing me to participate in his care Discontinued famotidine Discontinued Reason: Doctor's Order 20 mg PO DAILY 7 tabs 0RF TODAY'S VISIT Patient today for follow-up. Patient reports that he is taking omeprazole daily. Denies any acid reflux, however he reports trouble swallowing. Patient reports also feeling of dryness in the back of his throat. Patient denies dyspepsia or odynophagia. Patient reports that he is moving his bowels without any issues. Denies melena, hematochezia. Patient reports shortness of breath and chest pressure with activity. Denies presyncope or syncope. Reports waking up at night senna feeling short of breath. Patient denies any other GI thea rning symptoms. [facility] Medical History Helicobacter pylori (H. pylori) Tubular adenoma of colon Right inguinal hernia Hypovitaminosis D Mixed hyperlipidemia Diabetes mellitus Surgical History History of inguinal hernia repair History of umbilical hernia repair History of tonsillectomy Family History Father Lung cancer Mother Esophageal cancer Brother Throat cancer Social History Housing: Apartment Alcohol intake: current Alcohol intake frequency: a few times a week Alcohol type: beer Patient Tobacco Use Status: Former Tobacco user Tobacco use type: Cigarette Years Smoked: 10 years e-Cigarette/Vaping Use: Never Used Second Hand Smoke Exposure: No service: No Current occupational status: employed Current occupational exposures/hazards: No Cognitive needs: No Hearing needs: No Vision needs: No Review of Systems Const Denies weight gain and Denies weight loss ENT Reports no additional complaints, Reports dysphagia and Denies odynophagia Card Reports no additional complaints, Reports chest pain, Reports chest pain with activity and Reports dyspnea on exertion Resp Reports dyspnea on exertion GI Denies abdominal pain, Denies belching, Denies melena, Denies bloating, Denies change in bowel habits, Reports dysphagia, Denies excessive flatus, Denies dyspepsia, Denies heartburn, Denies diarrhea, Denies loose stools, Denies nausea, Denies odynophagia and Denies vomiting Reports no additional complaints Musc Reports no additional complaints Neuro Reports no additional complaints Psych Reports no additional complaints Endo Reports no additional complaints Physical Exam Vital Signs: Last Vital Signs Pulse 75 03/31/25 15:36 BP 126/51 L 03/31/25 15:36 Pulse Ox 75 L 03/31/25 15:36 Oxygen Delivery Method Room Air 03/31/25 15:36 BMI result Body Mass Index 27.0 Assessment & Plan Assessment & Plan (1) GERD (gastroesophageal reflux disease): Code(s): K21.9 - Gastro-esophageal reflux disease without esophagitis Category: Medical Qualifiers: Esophagitis presence: esophagitis presence not specified Qualified Code(s): K21.9 - Gastro-esophageal reflux disease without esophagitis Plan Patient will sent for upper GI with barium swallow. He is having trouble swallowing. Continue pantoprazole. Avoid dietary triggers and might at snacking. Staying upright for minimal 3 hours after meals discussed with patient. Referral placed to cardiology as patient is complaining of chest pressure and chest pain with minimal exertion. History of hyperlipidemia and diabetes. We on will see patient in 3 months. Patient will stop taking PPI 2 weeks before appointment so we can recheck him for H pylori. Patient is agreeable to this plan in today's is understanding of instructions. He was given the opportunity to ask questions and all questions answered. Thank you for allowing me to participate in his care Orders: Orders [place] upper GI w Ba Swallow Today K21.9 - Gastro-esophageal reflux disease without esophagitis Referrals Cardiology Referral R06.02 - Shortness of breath, R07.89 - Other chest pain, R07.9 - Chest pain, unspecified Coding Level of Care Code Est Pt Level 3 (91457) Diagnoses Gastroesophageal reflux disease, unspecified whether esophagitis present K21.9 Esophagitis presence: esophagitis presence not specified Time Spent (min) 30 Comment 20 minutes spent with patient and additional 10 minutes spent reviewing his records
[2025-03-31 15:36] VITALS: BP 126/51; PULSE 75; O2SAT 75; BMI 27.0
== END 2025-03-31 16:02 | disposition home or self-care (01) ==
LOC: HO.HGI 15:24
PROVIDERS: PCP Internal Medicine; Visit Provider Nurse Practitioner Family
DX: K21.9 Gastro-esophageal reflux disease without esophagitis (principal)
CPT/HCPCS: 99213

== ENCOUNTER 2025-05-20 07:03 | Outpatient (REF) | payer OTHER, SELFPAY ==
[2025-05-20 09:05] LABS: Alanine Aminotransferase 14 U/L (0-40); Albumin Level 4.5 g/dL (3.5-5.0); Alkaline Phosphatase 33 U/L (39-117); Anion Gap 16 (12-20); Aspartate Amino Transferase 22 U/L (5-37); Blood Urea Nitrogen 15 mg/dL (9-16); Calcium 9.1 mg/dL (8.4-10.2); Carbon Dioxide 27 mmol/L (22-29); Chloride 102 mmol/L (96-108); Cholesterol 136 mg/dL (<200); Estimated Glomerular Filt Rate > 60; HDL Cholesterol 60 mg/dL (>40); Potassium 4.2 mmol/L (3.3-5.1); Sodium 141 mmol/L (135-145); Total Protein 6.7 g/dL (6.5-8.0); Triglycerides 88 mg/dL (<150)
[2025-05-20 09:36] LABS: Microalbum/Creatinine Ratio Ur 22.3 ug/mg cr (<30)
== END 2025-05-20 07:04 | disposition home or self-care (01) ==
LOC: HO.LAB 07:03
PROVIDERS: PCP Internal Medicine; Visit Provider Internal Medicine
DX: E11.9 Type 2 diabetes mellitus without complications (principal); R80.9 Proteinuria, unspecified; E55.9 Vitamin D deficiency, unspecified; E78.5 Hyperlipidemia, unspecified
CPT/HCPCS: 36415; 80053; 80061; 82043; 82306; 82570

== ENCOUNTER 2025-05-25 15:28 | Outpatient (AMB) | payer OTHER, SELFPAY ==
[2025-05-25 15:35] VITALS: BP 122/78; PULSE 79; O2SAT 98; BMI 27.0
--- NOTE | 2025-05-25 15:35 | MHC.PC.OV ---
Vital Signs 05/25/25 15:35 Height 5 ft 6 in Weight 167 lb BMI 27.0 BP 122/78 Blood Pressure Location Lt brachial Position Sitting Pulse 79 Pulse Source Pulse Oximeter Pulse Oximetry (%) 98 Oxygen Delivery Method Room Air Intake Visit Reasons: dm Software Configuration Specialist Required: No Accompanied by: Self / Same As Patient Allergies No Known Allergies Allergy (Verified 05/25/25 15:59) Medication List - Last Reconciled 05/25/25 by Niesha Isabel MD atorvastatin 10 mg PO DAILY blood sugar diagnostic Use 1 test strip once a day blood sugar diagnostic (OneTouch Ultra Test strips) Use 1 test strip once a day blood sugar diagnostic (FreeStyle Test strips) Use 1 test strip once a day blood sugar diagnostic (Contour Next Test Strips) As directed once per day blood-glucose meter (FreeStyle Lite Meter kit) As directed cholecalciferol (vitamin D3) 50 mcg PO DAILY fenofibrate 54 mg PO DAILY hydrocortisone-pramoxine 2.5-1 % 1 appl [place] BID PRN hydroxyzine HCl 50 mg PO TID lancets (FreeStyle Lancets) Use 1 lancet once a day lancets (OneTouch Delica Lancets) Use 1 lancet once a day lancets (Microlet Lancet) As directed once per day lisinopril 10 mg PO DAILY 90 days metformin 1,000 mg PO BID 90 days omeprazole 20 mg PO DAILY tadalafil 20 mg PO DAILY PRN 3 days triamcinolone acetonide 0.1% 1 appl topical DAILY 14 days Tobacco use date assessed: 05/25/25 Fall risk assessment: No Falls in past year Last assessed Fall Risk: 05/25/25 Dental Screening Dental Screen Date: 05/25/25 Did you have a dental visit in the last 12 months?: No Did you have a dental problem in the last 6 months where you did not have access to dental care?: No Was dental information given to patient?: Patient has dentist HPI HPI Comments History of Present Illness Details The patient is a 65-year-old male presenting with monitoring of diabetes and management of erectile dysfunction. The patient's Type 2 Diabetes Mellitus is well-managed with an A1c of 6.8, indicating good glycemic control. He reports occasional challenges with dietary adherence but maintains stable blood glucose levels. Erectile dysfunction has been a concern, and he has previously been prescribed tadalafil, which he found not entirely effective. He is considering alternative medications for better efficacy. The patient has a history of hypertension, currently well-controlled with lisinopril, with blood pressure within the target range of less than 130/80 mmHg. Hyperlipidemia is managed with atorvastatin, and cholesterol levels are at goal. Fenofibrate was discontinued as it was deemed unnecessary for triglyceride management. The patient experiences anxiety, for which he uses hydroxyzine, primarily for allergic symptoms. [facility] Medical History Helicobacter pylori (H. pylori) Tubular adenoma of colon Right inguinal hernia Hypovitaminosis D Mixed hyperlipidemia Diabetes mellitus Surgical History History of inguinal hernia repair History of umbilical hernia repair History of tonsillectomy Family History Father Lung cancer Mother Esophageal cancer Brother Throat cancer Social History Housing: Apartment Alcohol intake: current Alcohol intake frequency: a few times a week Alcohol type: beer Patient Tobacco Use Status: Former Tobacco user Tobacco use type: Cigarette Years Smoked: 10 years e-Cigarette/Vaping Use: Never Used Second Hand Smoke Exposure: No service: No Current occupational status: employed Current occupational exposures/hazards: No Cognitive needs: No Hearing needs: No Vision needs: No Questionnaire PHQ-9 Over the last 2 weeks, how often have you been bothered by any of the following problems? 1. Little interest or pleasure in doing things: not at all 2. Feeling down, depressed, or hopeless: not at all 3. Trouble falling or staying asleep, or sleeping too much: not at all 4. Feeling tired or having little energy: not at all 5. Poor appetite or overeating: not at all 6. Feeling bad about yourself - or that you are a failure or have let yourself or your family down: not at all 7. Trouble concentrating on things, such as reading the newspaper or watching television: not at all 8. Moving or speaking so slowly that other people could have noticed. Or the opposite - being so fidgety or restless that you have been moving around a lot more than usual: not at all 9. Thoughts that you would be better off or of hurting yourself in some way: not at all Total score: 0 Depression Screening Interpretation: Negative Depression Screening Done: Yes 39658 - PHQ-9 Billing: Yes Source: Developed by Drs. Vivek Esteban, Kaykay Iglesias, Charles Rodriguez and colleagues, with an educational fei from [employer]. Thrive Questionnaire Date Thrive assessed: 05/25/25 I am a: Patient What is your living situation today?: I have a steady place to live Within the past 12 months, did the food you bought not last and you didn't have the money to get more?: I choose not to answer this question Within the past 12 months, did you worry whether your food would run out before you got money to buy more?: Never true Do you have trouble paying for medicines?: No Do you have trouble getting transportation to medical appointments?: No Do you have trouble paying your heating and electricity bill?: No Do you have trouble taking care of your child, family member or friend?: No Do you have trouble with day-to-day activities such as bathing, preparing meals, shopping, managing finances, etc.?: No Are you currently unemployed and looking for a job?: I choose not to answer this question Are you interested in more education?: I choose not to answer this question Please select the resources that you would like help with: None Currently or been in a relationship where the following occur: I choose not to answer THRIVE Score: 0 AUDIT C Alcohol Use Questionnaire (AUDIT-C) 1. How often do you have a drink containing alcohol?: Monthly or less 2. How many drinks containing alcohol do you have on a typical day when you are drinking?: 1 or 2 3. How often do you have six or more drinks on one occasion?: Never Total Score: 1 Score Reviewed/Action Taken: No MICHAEL-7 AMB Questionnaire MICHAEL-7 Date MICHAEL - 7 assessed: 05/25/25 Feeling nervous, anxious, or on edge: 0 = Not at all Not being able to stop or control worryin = Not at all Worrying too much about different things: 0 = Not at all Trouble relaxin = Not at all Being so restless that it is hard to sit still: 0 = Not at all Becoming easily annoyed or irritable: 0 = Not at all Feeling afraid as if something awful might happen: 0 = Not at all Total MICHAEL-7 score (0-4 normal; 5-9 mild; 10-14 moderate; 15-21 severe): 0 Source: Developed by Drs. Vivek Esteban, Kaykay Iglesias, Charles Rodriguez and colleagues, with an educational fei from [employer]. MICHAEL-7 Assessment Billing MICHAEL-7 Assessment Tool: MICHAEL-7 Assessment 14636 Review of Systems Const All systems reviewed & are unremarkable except as noted in HPI and below Card Denies chest pain at rest, Denies chest pain with activity, Denies edema, Denies irregular heart rhythm, Denies claudication, Denies dyspnea, Denies dyspnea on exertion, Denies orthopnea, Denies paroxysmal nocturnal dyspnea and Denies slow heart rate Resp Denies cough, Denies dyspnea and Denies dyspnea on exertion Physical exam (Primary Care) Vital Signs: Last Vital Signs Pulse 79 05/25/25 15:35 BP 122/78 05/25/25 15:35 Pulse Ox 98 05/25/25 15:35 Oxygen Delivery Method Room Air 05/25/25 15:35 BMI result Body Mass Index 27.0 Tobacco/Smoking Status: Tobacco use Status Tobacco use date assessed 05/25/25 05/25/25 15:38 Patient Tobacco Use Status Former Tobacco user 05/25/25 15:38 Tobacco use type Cigarette 05/25/25 15:38 e-Cigarette/Vaping Use Never Used 05/25/25 15:38 PHQ-9: PHQ-9 Score PHQ-9: Total score 0 05/25/25 15:38 Depression Screening Interpretation: Negative Thrive Assessment: Date of Thrive Assessment Date Thrive assessed 05/25/25 05/25/25 15:38 Currently or been in a relationship where the following occur: I choose not to answer Resp Effort & Inspection: normal respiratory effort Auscultation: clear to auscultation bilaterally Cardio Jugular venous distension: no JVD Rate: regular rate Rhythm: regular rhythm Heart sounds: S1 normal heart sound present and S2 normal heart sound present Extrem General: Yes full ROM Results AMB Hemoglobin A1c AMB Hemoglobin A1c 6.8 % Last Edit by MALCOLM Dominguez on 05/25/25 16:01 Coding Level of Care Code Est Pt Level 4 (82653) Complex EM visit Add On G2211 Diagnoses Type 2 diabetes mellitus without complication, without long-term current use of insulin E11.9 Diabetes mellitus type: type 2 Diabetes 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 insulin use: without middle or intermediate school principal use Diabetes mellitus complication status: without complication Essential hypertension I10 Mixed hyperlipidemia E78.2 Erectile dysfunction N52.9 Additional Codes MICHAEL-7 Assessment Billing - MICHAEL-7 Assessment Tool: MICHAEL-7 Assessment 80832 ([id number]) PHQ-9 - 09143 - PHQ-9 Billing: Yes ([id number]) Time Spent (min) 23 Assessment & Plan Assessment & Plan (1) Diabetes mellitus: Code(s): E11.9 - Type 2 diabetes mellitus without complications Category: Medical Qualifiers: Diabetes mellitus type: type 2 Diabetes 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 insulin use: without senior care use Diabetes mellitus complication status: without complication Qualified Code(s): E11.9 - Type 2 diabetes mellitus without complications (2) Essential hypertension: Code(s): I10 - Essential (primary) hypertension Category: Medical (3) Mixed hyperlipidemia: Code(s): E78.2 - Mixed hyperlipidemia Category: Medical (4) Erectile dysfunction: Code(s): N52.9 - Male erectile dysfunction, unspecified Category: Medical Plan Plan Patient was informed and verbally consented to the use of an ambient scribe for clinic note documentation during this visit. 1. Type 2 diabetes mellitus without complications E11.9 HCC 19 The patient's diabetes is well-controlled with an A1c of 6.8%. Continue current management and monitor blood glucose levels regularly. 2. Male erectile dysfunction, unspecified N52.9 The patient has been prescribed sildenafil 50 mg as an alternative to tadalafil for erectile dysfunction. Monitor efficacy and adjust dosage as needed. 3. Essential (primary) hypertension I10 Hypertension is well-controlled with lisinopril, maintaining blood pressure within target range. Continue current medication regimen. 4. Hyperlipidemia, unspecified E78.5 Cholesterol levels are at goal with atorvastatin therapy. Fenofibrate has been discontinued as it is no longer necessary. Orders: Orders Comprehensive [place]. Panel Fast 4 Months E11.9 - Type 2 diabetes mellitus without complications AMB Hemoglobin A1c Today Z13.9 - Encounter for screening, unspecified Lipid Panel 4 Months E78.5 - Hyperlipidemia, unspecified Microalbumin, Random (w Creat) 4 Months R80.9 - Proteinuria, unspecified Vitamin D 25-OH Total 4 Months E55.9 - Vitamin D deficiency, unspecified Medications: New sildenafil (Viagra) administer 30 minutes to 4 hours before activity 50 mg PO DAILY PRN 7 tabs 0RF sexual activity 30 days Discontinued tadalafil administer approximately 30min before sexual activity; do not use more than 1 dose per 24hrs Discontinued Reason: Patient Completed Course 20 mg PO DAILY 3 days PRN 3 tabs 1RF sexual activity fenofibrate Discontinued Reason: Patient Completed Course 54 mg PO DAILY 90 tabs 1RF
== END 2025-05-25 16:10 | disposition home or self-care (01) ==
LOC: HO.HMCH 15:28
PROVIDERS: PCP Internal Medicine; Visit Provider Internal Medicine
DX: E11.9 Type 2 diabetes mellitus without complications (principal); I10 Essential (primary) hypertension; E78.2 Mixed hyperlipidemia; N52.9 Male erectile dysfunction, unspecified; Z13.9 Encounter for screening, unspecified

== ENCOUNTER → 2025-05-25 15:28 | Outpatient (BNVA) | payer OTHER, SELFPAY | PROVIDERS: PCP Internal Medicine; Visit Provider Internal Medicine | DX: E11.9 Type 2 diabetes mellitus without complications (principal); N52.9 Male erectile dysfunction, unspecified; F41.9 Anxiety disorder, unspecified; I10 Essential (primary) hypertension; E78.2 Mixed hyperlipidemia | CPT/HCPCS: 83036; 96127 ==

== ENCOUNTER 2025-07-21 08:13 | Outpatient (REF) | payer OTHER, SELFPAY ==
--- NOTE | ~2025-07-21 | FL_ITS ---
EXAMINATION: XR UPPER GI SERIES WITH barium swallow CLINICAL INFORMATION: K21.9 - Gastro-esophageal reflux disease without esophagitis COMPARISON: None available. TECHNIQUE: The patient was administered thin and thick barium and effervescent granules. Barium tablet was also administered. FINDINGS: Swallowing mechanism is normal. No aspiration, penetration or retention. Esophageal motility is normal. No esophageal, mass stricture or hernia. There is mild gastroesophageal reflux. Stomach and duodenum are normal appearing. No fold thickening, mass, ulcer or stricture. Barium tablet passes freely into the stomach. FLUOROSCOPY TIME: 1 minute 35 seconds DOSE AREA PRODUCT: 11.7 uGy-m2 (microgray-meter squared) FL/FL upper GI w air w Ba Swallow IMPRESSION: Mild gastroesophageal reflux otherwise unremarkable exam. Electronically signed by: Mary Jeong MD 07/21/2025 12:09 PM EDT
== END 2025-07-21 08:14 | disposition home or self-care (01) ==
LOC: HO.XRAY 08:13
PROVIDERS: PCP Internal Medicine; Visit Provider Nurse Practitioner Family
DX: K21.9 Gastro-esophageal reflux disease without esophagitis (principal)
CPT/HCPCS: 74246

== ENCOUNTER → 2025-07-21 08:18 | Outpatient (BNV) | payer OTHER, SELFPAY | PROVIDERS: PCP Internal Medicine; Visit Provider Radiology Diagnostic Radiology | DX: K21.9 Gastro-esophageal reflux disease without esophagitis (principal) | CPT/HCPCS: 74246 ==

== ENCOUNTER 2025-09-20 14:00 | Outpatient (AMB) | payer OTHER, SELFPAY ==
--- NOTE | 2025-09-20 14:04 | MHC.OFFVIS ---
Vital Signs 09/20/25 14:11 Height 5 ft 6 in Weight 165 lb BMI 26.6 BP 146/78 H Blood Pressure Location Rt brachial Position Sitting Pulse 82 Pulse Source Pulse Oximeter Pulse Oximetry (%) 97 Oxygen Delivery Method Room Air Intake Visit Reasons: f/u Intake Note: Est pt for mgmt of GERD. CC: Pt denies any current GI sx or concerns. He reports he has stopped his PPI voluntarily and is doing well even without it. Technical Adjuster Required: No Accompanied by: Self / Same As Patient Allergies No Known Allergies Allergy (Verified 05/25/25 15:59) Medication List - Last Reconciled 09/20/25 by KERRI RuffP- atorvastatin 10 mg PO DAILY blood sugar diagnostic Use 1 test strip once a day blood sugar diagnostic (OneTouch Ultra Test strips) Use 1 test strip once a day blood sugar diagnostic (FreeStyle Test strips) Use 1 test strip once a day blood sugar diagnostic (Contour Next Test Strips) As directed once per day blood-glucose meter (FreeStyle Lite Meter kit) As directed cholecalciferol (vitamin D3) 50 mcg PO DAILY hydrocortisone-pramoxine 2.5-1 % 1 appl [place] BID PRN hydroxyzine HCl 50 mg PO TID lancets (FreeStyle Lancets) Use 1 lancet once a day lancets (OneTouch Delica Lancets) Use 1 lancet once a day lancets (Microlet Lancet) As directed once per day lisinopril 10 mg PO DAILY 90 days metformin 1,000 mg PO BID 90 days omeprazole 20 mg PO DAILY PRN sildenafil (Viagra) 50 mg PO DAILY PRN 30 days triamcinolone acetonide 0.1% 1 appl topical DAILY 14 days HPI HPI f/u: Details: LAST VISIT GERD (gastroesophageal reflux disease) Plan Patient will sent for upper GI with barium swallow. He is having trouble swallowing. Continue pantoprazole. Avoid dietary triggers and might at snacking. Staying upright for minimal 3 hours after meals discussed with patient. Referral placed to cardiology as patient is complaining of chest pressure and chest pain with minimal exertion. History of hyperlipidemia and diabetes. We on will see patient in 3 months. Patient will stop taking PPI 2 weeks before appointment so we can recheck him for H pylori. Patient is agreeable to this plan in today's is understanding of instructions. He was given the opportunity to ask questions and all questions answered. ? Thank you for allowing me to participate in his care Orders FL upper GI w Ba Swallow Today K21.9 Referrals Cardiology Referral R06.02, R07.89, R07.9 TODAY'S VISIT Patient is here today for follow-up and to discuss upper GI with barium swallow. Patient reports that he stopped taking omeprazole just before the test and has not started it again. He thought if he was supposed to be off of it. Patient had mild reflux on upper GI series. He reports that since he stopped taking omeprazole he has symptoms occasionally only. Patient is trying to avoid dietary triggers. Patient denies dyspepsia, dysphagia or odynophagia. Denies any other GI concerning symptoms. Patient is diabetic his last A1c was 6.8 %. When patient checks his blood sugars they usually high 90s or low 100s. [facility] Medical History Helicobacter pylori (H. pylori) Tubular adenoma of colon Right inguinal hernia Hypovitaminosis D Mixed hyperlipidemia Diabetes mellitus Surgical History History of inguinal hernia repair History of umbilical hernia repair History of tonsillectomy Family History Father Lung cancer Mother Esophageal cancer Brother Throat cancer Social History Housing: Apartment Alcohol intake: current Alcohol intake frequency: a few times a week Alcohol type: beer Patient Tobacco Use Status: Former Tobacco user Tobacco use type: Cigarette Years Smoked: 10 years e-Cigarette/Vaping Use: Never Used Second Hand Smoke Exposure: No service: No Current occupational status: employed Current occupational exposures/hazards: No Cognitive needs: No Hearing needs: No Vision needs: No Review of Systems Const Denies weight gain and Denies weight loss ENT Reports no additional complaints, Reports dysphagia and Denies odynophagia Card Reports no additional complaints, Reports chest pain, Reports chest pain with activity and Reports dyspnea on exertion Resp Reports dyspnea on exertion GI Denies abdominal pain, Denies belching, Denies melena, Denies bloating, Denies change in bowel habits, Reports dysphagia, Denies excessive flatus, Denies dyspepsia, Denies heartburn, Denies diarrhea, Denies loose stools, Denies nausea, Denies odynophagia and Denies vomiting Reports no additional complaints Musc Reports no additional complaints Neuro Reports no additional complaints Psych Reports no additional complaints Endo Reports no additional complaints Physical Exam Vital Signs: Last Vital Signs Pulse 82 09/20/25 14:11 BP 146/78 H 09/20/25 14:11 Pulse Ox 97 09/20/25 14:11 Oxygen Delivery Method Room Air 09/20/25 14:11 BMI result Body Mass Index 26.6 Const General: healthy appearing, no acute distress and well developed Nutritional Appearance: well nourished Orientation/consciousness: patient oriented x3 Resp Effort & Inspection: normal respiratory effort, able to speak in complete sentences, no tracheal deviation and symmetric chest movement Auscultation: clear to auscultation bilaterally Cardio Rate: regular rate GI Inspection: Yes normal to inspection and No distended Palpation (GI): Soft to palpation, not firm, nontender and No hepatosplenomegaly present Auscultation: normal bowel sounds General: Yes no CVA tenderness Back/Spine/Pelvis Back: no CVA tenderness Skin General skin exam: elasticity normal, turgor normal and dry skin Neuro General: patient oriented x3 Psych Appearance: grossly normal Mental Status: mental status grossly normal Results Reviewed Results Reviewed: UPPER ENDOSCOPY FINDINGS: Swallowing mechanism is normal. No aspiration, penetration or retention. Esophageal motility is normal. No esophageal, mass stricture or hernia. There is mild gastroesophageal reflux. Stomach and duodenum are normal appearing. No fold thickening, mass, ulcer or stricture. Barium tablet passes freely into the stomach. FLUOROSCOPY TIME: 1 minute 35 seconds DOSE AREA PRODUCT: 11.7 uGy-m2 (microgray-meter squared) FL/FL upper GI w air w Ba Swallow IMPRESSION: Mild gastroesophageal reflux otherwise unremarkable exam. Assessment & Plan Assessment & Plan (1) GERD (gastroesophageal reflux disease): Code(s): K21.9 - Gastro-esophageal reflux disease without esophagitis Category: Medical Qualifiers: Esophagitis presence: esophagitis presence not specified Qualified Code(s): K21.9 - Gastro-esophageal reflux disease without esophagitis Plan Patient will start taking omeprazole daily. His symptoms are still continue. Upper GI series showed mild reflux. Avoid dietary triggers like that is lacking. Staying upright for minimum 3 hours after meals discussed with patient. Patient will follow-up in 6 months. Patient was encouraged to call our office if he will have any GI concerning symptoms. He is agreeable to this plan and verbalizes understanding of instructions. He was given the opportunity to ask questions and all questions answered. Thank you for allowing me to participate in his care Orders: Orders Hemoglobin A1c 09/20/25 Z83.3 - Family history of diabetes mellitus Medications: Changed From omeprazole 20 mg PO DAILY PRN K21.9 - Gastro-esophageal reflux disease without esophagitis To omeprazole 20 mg PO DAILY 90 caps 3RF K21.9 - Gastro-esophageal reflux disease without esophagitis Coding Level of Care Code Est Pt Level 4 (27492) Add On Problem Visit Only Diagnoses Gastroesophageal reflux disease, unspecified whether esophagitis present K21.9 Esophagitis presence: esophagitis presence not specified Time Spent (min) 35 Comment 25 minutes spent with patient and additional 10 minutes spent reviewing his records
[2025-09-20 14:11] VITALS: BP 146/78; PULSE 82; O2SAT 97; BMI 26.6
== END 2025-09-20 14:27 | disposition home or self-care (01) ==
LOC: HO.HGI 14:01
PROVIDERS: PCP Internal Medicine; Visit Provider Nurse Practitioner Family
DX: K21.9 Gastro-esophageal reflux disease without esophagitis (principal)
CPT/HCPCS: 99214